=== PATIENT | male | born 1955 | race Caucasian/White ===

== ENCOUNTER → 2017-04-10 | Outpatient (CLI) | payer OTHER ==
[~2017-04-10] MED LIST: IBUP-103 PO; LSN/2025 PO; PRAV20TA PO
[2017-04-10 12:25] LABS: BASO % 0.2 %; BASO ABS # 0.01 K/uL (0-0.2); COMPLETE YES; EOS % 3.6 %; HEMATOCRIT 45.8 % (42-52); IG% 0.3 %; LYMPH % 34.3 %; MEAN CELL VOLUME 88.8 fL (80-100); MEAN CORPUSCULAR HEMOGLOBIN 30.4 pg (25-34); MEAN CORPUSCULAR HGB CONC 34.3 g/dl (32-36); MEAN PLATELET VOLUME 9.7 fL (7.4-10.4); MONO % 11.3 %; NEUT % 50.3 %; PLATELET COUNT 219 K/uL (130-400); RED BLOOD COUNT 5.16 M/uL (4.7-6.1); WHITE BLOOD COUNT 6.12 K/uL (4.8-10.8)
[2017-04-10 12:25] LABS: URINE APPEARANCE CLEAR (CLEAR); URINE BILIRUBIN NEG (NEG); URINE COLOR YELLOW; URINE EPITHELIAL CELL AUTO 0-5 /lpf (0-5); URINE NITRITE NEG (NEG); URINE PH 6.5 (4.5-7.5); UROBILINOGEN NEG (NEG); ZZUR CULT IF INDIC CLEAN CATCH NO
[2017-04-10 12:27] LABS: MANUAL MICROSCOPIC REQUIRED? NO; REVIEW REQ? NO
[2017-04-10 12:37] LABS: ALT/SGPT 32 U/L (12-78); AST/SGOT 22 U/L (15-37); BLOOD UREA NITROGEN 18 mg/dl (7-18); BUN/CREATININE RATIO 19.7 (10-20); CALCIUM 8.9 mg/dl (8.5-10.1); CARBON DIOXIDE 28 mmol/L (21-32); CHLORIDE 102 mmol/L (98-107); CHOLESTEROL 170 mg/dl (0-200); CREATININE 0.92 mg/dl (0.60-1.40); GLUCOSE 96 mg/dl (70-99); POTASSIUM 3.8 mmol/L (3.5-5.1); SODIUM 139 mmol/L (136-145); TRIGLYCERIDES 208 mg/dl (0-150); VERY LOW DENSITY LIPOPROT CALC 42 mg/dl
[2017-04-10 12:44] LABS: ALKALINE PHOSPHATASE 47 U/L (45-117); CHOLESTEROL/HDL RATIO 4.6; HDL CHOLESTEROL 37 mg/dl; LDL CHOLESTEROL CALCULATED 91 mg/dl; THYROID STIMULATING HORMONE 0.098 uIu/ml (0.300-4.500)
== END | disposition home or self-care (01) ==
LOC: C.LABBFT 08:09
PROVIDERS: ATTEND Physician Assistant Medical
DX: I10 Essential (primary) hypertension (principal); E78.5 Hyperlipidemia, unspecified

== ENCOUNTER → 2017-06-02 | Outpatient (CLI) | payer OTHER ==
[2017-06-02 12:25] LABS: BLOOD UREA NITROGEN 17 mg/dl (7-18); BUN/CREATININE RATIO 17.2 (10-20); CARBON DIOXIDE 27 mmol/L (21-32); CHLORIDE 100 mmol/L (98-107); CREATININE 1.01 mg/dl (0.60-1.40); GLUCOSE 102 mg/dl (70-99); POTASSIUM 3.9 mmol/L (3.5-5.1); SODIUM 136 mmol/L (136-145)
[2017-06-02 12:40] LABS: PROSTATE SPECIFIC ANTIGEN 0.776 ng/ml (0.000-4.000)
== END | disposition home or self-care (01) ==
LOC: C.LABBFT 07:57
PROVIDERS: ATTEND Internal Medicine
DX: Z12.5 Encounter for screening for malignant neoplasm of prostate (principal); R94.6 Abnormal results of thyroid function studies; I10 Essential (primary) hypertension

== ENCOUNTER 2019-08-02 05:10 | Inpatient (IN) ==
--- NOTE | 2019-07-03 09:25 | Anesthesiology Consultation ---
Date of Service July 03, 2019 Assessment & Plan (1) Encounter for pre-operative examination: - ASA instructions: okay to continue ASA perioperatively per surgeon. - Hx of difficult intubation (per patient): Patient states he was told by anesthesia "had difficulty" with intubation with right shoulder surgery ([facility]/Dr. Mathew/2011). Will attempt to obtain previous anesthesia records for further details. Chart Review Chart Review: Patient seen in Pre Admission Testing Teaching & Discussion Pre-Anesthesia Teaching/Discussion Notes: Instructed NPO after midnight before surgery,except medications with 15 cc of water. Medication instructions provided according to the PAT guidelines. History Surgery Operation Date: 08/02/19 10:30 Proposed Procedures p Left Anterior Total Hip Arthroplasty - Sylvester Montgomery, Height/Weight Height: 5 ft 10.5 in Weight: 125.1 kg Allergies Allergy/AdvReac Type Severity Reaction Status Date / Time Sulfa (Sulfonamide Allergy Severe RASH,FEVER Verified 06/26/19 09:15 Antibiotics) Medications Home Medications Medication Instructions Recorded Confirmed Last Taken aspirin 81 mg chewable tablet 81 mg PO QAM 05/07/19 06/26/19 Unknown lisinopril-hydrochlorothiazide 1 tab PO BID 06/26/19 06/26/19 Unknown naproxen sodium [Aleve] 220 mg PO BID PRN 06/26/19 06/26/19 Unknown naproxen-diphenhydramine [Aleve PM] 2 tab PO PM 06/26/19 06/26/19 Unknown pravastatin 20 mg PO QPM 06/26/19 06/26/19 Unknown Past Medical History Medical History (Updated 07/04/19 @ 08:35 by Rachael Bradford) Aortic stenosis "Mild" aortic stenosis per 05/2019 ECHO (JANELLE 1.5cm2, MG 13.9mmhg) Arthritis BPH (benign prostatic hyperplasia) Carotid stenosis History of difficult intubation Patient states he was told by anesthesia "had difficulty" with intubation with right shoulder surgery ([facility]/Dr. Mathew/2011) Hyperlipidemia Hypertension Impaired fasting glucose Lumbar radiculopathy + LBP Obesity (BMI 30-39.9) Obstructive sleep apnea CPAP Exercise / Class Metabolic Activity II 4-5 Yardwork/Stairs/Walk up hill Past Family History Family History Father Alzheimer disease Mother Dyslipidemia Past Surgical History Surgical History History of carpal tunnel release R/L History of colonoscopy + polypectomy S/P tonsillectomy Status post arthroscopy of right shoulder Status post hernia repair Left inguinal hernia repair, umbilical hernia repair Past Anesthesia History Difficult Airway (possible (see additional comments)) and No Family Hx of Anesthesia Complications *Per patient, told by anesthesia "had difficulty" with intubation with right jakub ulder surgery ([facility]/Dr. Mathew/2011). Will attempt to obtain previous anesthesia records for further details.* History of PONV No Hx of PONV and Hx of Motion Sickness ("on boats") Social History Smoking Status: Never smoker Do You Dip or Chew Tobacco: No Hx Alcohol Use: Yes Alcohol type: beer alcohol intake frequency: a few times a month Hx Substance Use: No Review of Systems Patient denies chest pain, shortness of breath, dyspnea on exertion, cough, wheezing, palpitations. Physical Exam Vital Signs VITALS BP 161/83 P 70 TEMP 98.5 SP02 94%RA RESP 16 PHYSICAL Full neck and c-spine range of motion. Full TMJ range of motion. TMD 4 finger breaths Mallampati Score 3 Dentition: missing molars, several caps/crowns Lungs: clear throughout to auscultation Cardiac: regular rate and rhythm, II/ systolic murmur Spine: normal Carotid arteries: negative bruit Extremities: no edema Trimmed green Thick neck Testing Laboratory Results 07/03/19 10:36 07/03/19 10:36 PT 10.6 Seconds (9.0-12.0) 07/03/19 10:36 INR 1.0 (0.9-1.1) 07/03/19 10:36 APTT 23.4 Seconds (21.0-31.0) 07/03/19 10:36 Blood Type A Positive 07/03/19 10:36 Antibody Screen NEGATIVE 07/03/19 10:36 Electrocardiogram Date: 07/03/19 NSR at 65bpm. LAD. NS TWA. Chest X-Ray Date: 07/03/19 Atherosclerosis of the aortic arch. Cardiac silhouette mildly enlarged. Lungs and pleural spaces clear. Degenerative changes of the thoracic spine. Slightly exaggerated thoracic kyphosis. Upper abdomen normal. Mild cardiomegaly. No other convincing evidence of acute cardiopulmonary disease. Echocardiogram Date: 06/04/19 EF 55-60%. Mild cLVH. No RWMA. Mild aortic stenosis (JANELLE 1.5cms, MG 13.9mmhg). Stress Test Date: 07/07/16 Type: exercise Stress EKG/ECHO negative for inducible ischemia. LVEF 65-70%. Moderately incr eased cLV wall thickness. Borderline dilated LAD. Grade I DD. Mild AV sclerosis. 85% MPHR. Other Testing Carotid duplex: 06/04/18: <50% B/L ICA stenosis. Antegrade flow both vertebral arteries.
--- NOTE | 2019-07-03 11:00 | XRay Report ---
XR chest Pre-admission PA/Lat CLINICAL HISTORY: 64 years-old Male presenting with preoperative evaluation. TECHNIQUE: PA and lateral views of the chest were obtained. COMPARISON: 11/14/2016. FINDINGS: Atherosclerosis of the aortic arch. Cardiac silhouette mildly enlarged. Lungs and pleural spaces kike r. Degenerative changes of the thoracic spine. Slightly exaggerated thoracic kyphosis. Upper abdomen normal. IMPRESSION: Mild cardiomegaly. No other convincing evidence of acute cardiopulmonary disease. ACT 112: Negative or not required by law. Electronically signed by: Mac Wong M.D. 07/03/2019 10:59 AM
[2019-07-03 11:18] LABS: Basophils # (auto) 0.02 K/uL (0-0.2); Basophils % (auto) 0.2 %; Eosinophils # (auto) 0.16 K/uL (0-0.5); Eosinophils % (auto) 1.8 %; Hematocrit (blood only) 46.9 % (42-52); Hemoglobin 16.1 g/dL (14.0-18.0); Immature Granulocytes # (auto) 0.06 K/uL (0.00-0.02); Immature Granulocytes % (auto) 0.7 %; Lymphocytes # (auto) 2.34 K/uL (1.2-3.4); Lymphocytes % (auto) 26.1 %; Mean Corpuscular Hemoglobin 30.9 pg (25-34); Mean Corpuscular Hgb Conc 34.3 g/dL (32-36); Mean Platelet Volume 9.3 fL (7.4-10.4); Monocytes # (auto) 0.96 K/uL (0.11-0.59); Monocytes % (auto) 10.7 %; Neutrophils # (auto) 5.42 K/uL (1.4-6.5); Neutrophils % (auto) 60.5 %; Platelet Count 208 K/uL (130-400); RDW Coefficient of Variation 13.6 % (11.5-14.5); RDW Standard Deviation 44.7 fL (36.4-46.3); Red Blood Count 5.21 M/uL (4.7-6.1); White Blood Count 8.96 K/uL (4.8-10.8)
[2019-07-03 11:29] LABS: Partial Thromboplastin Ratio 0.9; Partial Thromboplastin Time 23.4 Seconds (21.0-31.0); Prothrombin Time 10.6 Seconds (9.0-12.0)
[2019-07-03 14:38] LABS: BUN Creatinine Ratio 20.9 (10-20); Calcium 9.1 mg/dl (8.5-10.1); Creatinine Clr Calc Pharmacy 100.4 ml/min; Est GFR (African American) 90.9; Est GFR (Non-African American) 78.4; Potassium 3.7 mmol/L (3.5-5.1)
--- NOTE | 2019-08-01 06:32 | History & Physical Report ---
Date of Service August 01, 2019 Assessment & Plan (1) Osteoarthritis of left hip: We will proceed with a left anterior total hip arthroplasty. Postoperatively he will be started on aspirin for DVT prophylaxis and kept overnight in the hospital for postoperative medical management. He plans to use [facility] home health upon discharge. Present on Admission?: Yes History of Present Illness Chief Complaint: Primary osteoarthritis of the left hip Primary Care Provider: Ron Sanabria MD Tyler is a pleasant 64-year-old male who is been dealing with chronic increasing left hip and groin pain. X-rays and clinical examination have been diagnostic for primary osteoarthritis of the left hip. After failing conservative treatment, he has elected to proceed with a left total hip arthroplasty. Allergies Allergy/AdvReac Type Severity Reaction Status Date / Time Sulfa (Sulfonamide Allergy Severe RASH,FEVER Verified 07/25/19 14:14 Antibiotics) Home Medications Home Medications Medication Instructions Recorded Confirmed Type aspirin 81 mg chewable tablet 81 mg PO QAM 05/07/19 07/25/19 History naproxen sodium [Aleve] 220 mg PO BID PRN 06/26/19 07/25/19 History naproxen-diphenhydramine [Aleve PM] 2 tab PO PM 06/26/19 07/25/19 History codeine 10 mg-guaifenesin 100 mg/5 5 ml PO HS PRN #120 ml 07/08/19 07/25/19 Rx mL oral liquid lisinopril 20 1 tab PO BID #180 tab 07/22/19 07/25/19 Rx mg-hydrochlorothiazide 25 mg tablet pravastatin 20 mg tablet 20 mg PO QPM #90 tab 07/22/19 07/25/19 Rx cetirizine 10 mg tablet 10 mg PO DAILY #30 tab 07/25/19 07/25/19 Rx fluticasone propionate 50 2 sprays INTNAS DAILY #9.9 ml 07/25/19 07/25/19 Rx mcg/actuation nasal spray,suspension Past Med/Surg History Medical History Aortic stenosis "Mild" aortic stenosis per 05/2019 ECHO (JANELLE 1.5cm2, MG 13.9mmhg) Arthritis BPH (benign prostatic hyperplasia) Carotid stenosis Hyperlipidemia Hypertension Impaired fasting glucose Lumbar radiculopathy + LBP Obesity (BMI 30-39.9) Obstructive sleep apnea CPAP Surgical History History of carpal tunnel release R/L History of colonoscopy + polypectomy History of difficult intubation Patient states he was told by anesthesia "had difficulty" with intubation with right shoulder surgery ([facility]/Dr. 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 Feels Safe at Home: Yes Smoking Status: Never smoker Second Hand Exposure: No ; Hx Alcohol Use: Yes Alcohol type: beer Alcohol Intake Frequency: Weekly Alcohol Intake Frequency Comment: about one beer per week Hx Substance Use: No Review of Systems All systems reviewed & are unremarkable except as noted in HPI & below Physical Exam Constitutional: WD/WN, vitals as above Eyes: PERRL, conjunctivae normal, anicteric sclerae ENMT: external ear and nose normal, oropharynx normal Neck: trachea midline, no thyromegaly Respiratory: normal respiratory effort Cardiovascular: RRR, no murmur, no edema Gastrointestinal (Abdomen): normal bowel sounds, soft, nontender, no hepatosplenomegaly Musculoskeletal: Physical examination of the left hip reveals decreased range of motion with flexion, internal and external rotation. There is significant groin pain with forced internal rotation of the hip his leg lengths are essentially equal. Psychiatric: A+Ox3, euthymic affect Results & Data Diagnostic Findings Radiographs of the left hip and pelvis demonstrate advanced osteoarthritis with joint space narrowing osteophyte formation and [id number] articulation.
[2019-08-02] MEDS ORDERED: GABAPENTIN 600 MG DOSE PO SCH (06:00)
[2019-08-02] MEDS ORDERED: TRANEXAMIC ACID 1,000 MG **IV Pre-op IV SCH (06:00)
[2019-08-02] MEDS ORDERED: LR 60ML/HR IV SCH (06:00)
[2019-08-02] MEDS ORDERED: LR 500ML BOLUS, THEN 15ML/HR IV SCH (06:00)
[2019-08-02] MEDS ORDERED: CEFAZOLIN 3000MG 72.5 ML IV SCH (06:00)
[2019-08-02] MEDS ORDERED: dexAMETHasone 4 MG TAB PO SCH (06:00)
[2019-08-02] MEDS ORDERED: TRANEXAMIC ACID 1,000 MG **IV Intra-op IV SCH (06:00)
[2019-08-02] MEDS ORDERED: ACETAMINOPHEN 500 MG TAB PO SCH (06:00)
[2019-08-02] MEDS ORDERED: FAMOTIDINE 20 MG TAB PO SCH (06:00)
[2019-08-02] MEDS ORDERED: ROPIVACAINE 0.5% HCL/PF 150 MG, BUPIVACAINE 0.5% MPF 30 ML, EPINEPHrine 30MG/30ML (OR U... INSTIL SCH (06:00)
[2019-08-02] MEDS ORDERED: BUPIVACAINE 0.5 % 5 MG/1 ML PF 10ML VIAL ONE (06:22)
[2019-08-02] MEDS ORDERED: ORTHO JOINT ANESTHETIC ONE (06:33)
[2019-08-02] MEDS ORDERED: LIDOCAINE HCL 2% 2 ML VIAL/AMP(20MG/ML) INFIL ONE (06:33)
[2019-08-02] MEDS ORDERED: PROPOFOL IV EMULSION 10 MG/ML 20 ML VIAL IV ONE (06:33)
[2019-08-02] MEDS ORDERED: MIDAZOLAM HCL 1 MG/ML 2ML VIAL ONE ×2 (06:34→08:36)
--- NOTE | 2019-08-02 06:47 | History & Physical Bridge Note ---
Date of Service August 02, 2019 History & Physical Bridge Note I have examined the patient, reviewed the History & Physical and in the interval since the performance of the History & Physical I have noted the following changes of clinical significance: no changes noted
[2019-08-02] MEDS ORDERED: ATROPINE SULFATE 0.1 MG/ML 10ML SYR IV PRN (06:55)
[2019-08-02] MEDS ORDERED: ePHEDrine sulfate 50 MG/ML AMP IV PRN (06:55)
[2019-08-02] MEDS ORDERED: fentaNYL citrate 100 MCG/2 ML VIAL IV PRN (06:55)
[2019-08-02] MEDS ORDERED: ONDANSETRON INJ 2 MG/ML 2 ML VIAL IV PRN ×2 (06:55→10:09)
[2019-08-02] MEDS ORDERED: fentaNYL citrate 100 MCG/2 ML VIAL ONE (07:10)
[2019-08-02] MEDS ORDERED: ePHEDrine sulfate 50 MG/ML SYR ONE (08:46)
[2019-08-02] MEDS ORDERED: PHENYLEPHRINE 100MCG/ML 5ML SYR ONE (08:46)
--- NOTE | 2019-08-02 08:49 | Operative Report ---
PG Post Operative Report Pre & Post Diagnosis Operation Date: 08/02/19 07:00 Pre-Op Diagnosis: Left Hip Degenerative Joint Disease Post-Op Diagnosis: Left Hip Degenerative Joint Disease I identified the patient and participated in the time-out.: Yes Procedure Operation Date: 08/02/19 07:00 Actual Procedures p Left Anterior Total Hip Arthroplasty(Left) - Sylvester Montgomery DO Surgeon Sylvester Montgomery DO Communication Signals Intelligence Sylvester Somers PAC Estimated Blood Loss 200 Findings Consistent with Post-Op Diagnosis Specimens Left femoral head Complications none Disposition Disposition: Recovery Room Indications Tyler is a pleasant 64-year-old male who presents my office today with chronic increasing left hip and groin pain. X-rays and clinical examination are diagnostic for primary osteoarthritis of the left hip. After failing conservative treatment, he has elected to proceed with a left total hip arthroplasty. Description of Procedure Implants used Biomet Taperloc total hip arthroplasty system with a size 11 high offset Taperloc stem, a 52 mm G7 cup with a 25mm screw, an E1 polyethylene liner, a 36 mm ceramic head with a 0 neck. Patient arrived at the hospital for the above procedure. They were seen in the preoperative holding area and the operative extremity was identified and signed. They were given a spinal anesthetic. They were given a preoperative antibiotic and TXA. They were taken back To the operating room and laid on the table in the supine position. The leg was brought out through a Puristst leg positioner. The hip was then prepped and draped in sterile fashion. A timeout was done and the patient and the operative extremity was properly identified. An anterior approach was used. Dissection was taken down through the fascia and the tensor muscle belly was retracted laterally and the rectus was retracted medially. The circumflex vessels were identified and ligated. The capsule was then incised and tagged for later repair. The femoral neck was then cut and the femoral head was removed. The acetabulum was exposed. Time was spent doing a complete circumferential labral release. Sequential reaming of the acetabulum up to a size 51 reamer was done. Final reamings were done under fluoroscopy to ensure appropriate version. A Biomet 52 mm G7 cup was then impacted into place. A single 25 mm screw was placed. The E1 polyethylene liner was then snapped into place. Surrounding soft tissues were then injected with 100 cc of an orthopedic pain control cocktail. The proximal femur was then exposed. Sequential broaching up to a size 11 broach was done. Off that broach a size 36 head with a 0 neck was trialed. The hip was reduced and fluoroscopic images showed anatomic alignment of the implants in acceptable length. The broach was removed. The final size 11 high offset Taperloc stem was then impacted into place. A ceramic 36 mm head with a 0 neck was then impacted into place in the hip was reduced. Final fluoroscopic images showed anatomic reduction of the hip. The capsule was then closed with #1 Vicryl suture. A dilute betadyne lavage was then done for 3 minutes. The joint was then irrigated with normal saline solution. The fascia was closed with #1 PDS suture. Skin was closed with 2-0 Vicryl, mac, and a Jazzy VAC dressing. The patient was then transferred to a hospital bed and taken to the post anesthesia care unit in stable condition. They tolerated the procedure well. I attest to the content of the Intraoperative Record and any orders documented therein. Any exceptions are noted below.
--- NOTE | 2019-08-02 09:07 | Fluoroscopy Report ---
INTRAOPERATIVE RADIOGRAPHS CLINICAL HISTORY: Left hip arthroplasty. Fluoroscopy time: 33 seconds. FINDINGS: 2 spot fluoroscopic views of the left hip are presented. The first image shows surgical abs ence of the femoral head and neck with the acetabular cup in place. A single cortical lag screw trans fixes the cup. The second image shows the left hip arthroplasty in near anatomic alignment. There is no evidence of acute fracture on these fluoroscopic views. IMPRESSION: Intraoperative images from a left hip arthroplasty procedure as above. Electronically signed by: Damir Ram M.D. 08/02/2019 9:05 AM
--- NOTE | 2019-08-02 09:26 | Anesthesiology Progress Note ---
Date of Service August 02, 2019 Anesthesia Post Procedure Vital Signs Vital Signs: Temp Pulse Resp BP Pulse Ox 08/02/19 05:46 37.3 C 80 18 150/79 H 96 Transfer of Care Handoff Completed per policy Notes Mental Status: alert / awake / arousable Patient Amnestic to Procedure: Yes (non distressing recall as discussed preop) Nausea / Vomiting: adequately controlled Pain: adequately controlled Airway Patency, RR, SpO2: stable & adequate BP & HR: stable & adequate Hydration State: stable & adequate Neuraxial Anesthesia: was administered and sensory block is resolving Anesthetic Complications: no major complications apparent and Pt Satisfied with anesthetic care
--- NOTE | 2019-08-02 09:56 | XRay Report ---
XR hip 1V LT w pelvis CLINICAL HISTORY: IN PACU - A/P PELVIS and LATERAL HIP COMPARISON: None. DISCUSSION: Anatomic alignment posttotal left hip arthroplasty. Could contact between prosthetic and underlying bone. No evidence for acetabular protrusion. Expected postoperative soft tissue change lef t hip. IMPRESSION: Anatomic alignment posttotal left hip arthroplasty. ACT 112: Negative or not required by law. The above report was generated using voice recognition software. It may contain grammatical, syntax or spelling errors. Electronically signed by: Joao Aguilar M.D. 08/02/2019 9:55 AM
[2019-08-02] MEDS ORDERED: CETIRIZINE HCL 10 MG TABLET PO PRN (10:09)
[2019-08-02] MEDS ORDERED: MAGNESIUM HYDROXIDE SUSP 30 ML UDC PO PRN (10:09)
[2019-08-02] MEDS ORDERED: HYDROmorphone INJ 0.5 MG/0.5 ML SYR IV PRN (10:09)
[2019-08-02] MEDS ORDERED: bisacodyL 10 MG SUPP PR PRN (10:09)
[2019-08-02] MEDS ORDERED: NALOXONE HCL 0.4 MG/1 ML VIAL/CARP IV PRN (10:09)
[2019-08-02] MEDS ORDERED: FLUTICASONE PROPIONATE NA SPR 16 GM BTL PRN (10:09)
[2019-08-02] MEDS ORDERED: METOCLOPRAMIDE HCL INJ 5 MG/ML 2 ML VIAL IV PRN (10:09)
[2019-08-02] MEDS: SODIUM CHLORIDE 0.9% 1000ML 1,000 ML IV SCH ×2 (10:33→20:27)
[2019-08-02] MEDS: KETOROLAC 30 MG/ML VIAL IV SCH ×2 (11:09→18:54)
[2019-08-02] MEDS: OXYCODONE HCL IR 5 MG TAB (IMMEDIATE RELEASE) PO PRN ×3 (11:46→21:31)
[2019-08-02] MEDS: ACETAMINOPHEN 500 MG TAB PO SCH ×2 (13:16→21:08)
[2019-08-02] MEDS: CEFAZOLIN 2000MG 2,000 MG/15 ML SYR IV SCH (16:21)
[2019-08-02] MEDS: PRAVASTATIN SOD 20 MG TAB PO SCH (21:05)
[2019-08-02] MEDS: LISINOPRIL/HCTZ 20/25MG 1 TAB PO SCH (21:06)
[2019-08-02] MEDS: DOCUSATE SODIUM 100 MG CAP PO SCH (21:06)
[2019-08-02] MEDS: SENNA 8.6 MG TAB PO SCH (21:06)
[2019-08-02] MEDS: ASPIRIN 81 MG ECTAB PO SCH (21:12)
[2019-08-03] MEDS: CEFAZOLIN 2000MG 2,000 MG/15 ML SYR IV SCH (00:14)
[2019-08-03] MEDS: KETOROLAC 30 MG/ML VIAL IV SCH ×4 (00:14→18:29)
[2019-08-03] MEDS: ACETAMINOPHEN 500 MG TAB PO SCH ×3 (05:54→22:26)
[2019-08-03 06:43] LABS: Eosinophils # (auto) 0.01 K/uL (0-0.5); Eosinophils % (auto) 0.1 %; Hematocrit (blood only) 36.3 % (42-52); Hemoglobin 12.3 g/dL (14.0-18.0); Immature Granulocytes # (auto) 0.05 K/uL (0.00-0.02); Immature Granulocytes % (auto) 0.5 %; Lymphocytes # (auto) 1.34 K/uL (1.2-3.4); Lymphocytes % (auto) 12.2 %; Mean Corpuscular Hemoglobin 30.1 pg (25-34); Mean Corpuscular Hgb Conc 33.9 g/dL (32-36); Mean Platelet Volume 9.1 fL (7.4-10.4); Monocytes # (auto) 1.31 K/uL (0.11-0.59); Neutrophils # (auto) 8.25 K/uL (1.4-6.5); Neutrophils % (auto) 75.2 %; Platelet Count 194 K/uL (130-400); RDW Coefficient of Variation 13.3 % (11.5-14.5); RDW Standard Deviation 43.1 fL (36.4-46.3); Red Blood Count 4.08 M/uL (4.7-6.1); White Blood Count 10.96 K/uL (4.8-10.8)
[2019-08-03 07:18] LABS: BUN Creatinine Ratio 21.5 (10-20); Calcium 8.4 mg/dl (8.5-10.1); Creatinine Clr Calc Pharmacy 91.7 ml/min; Est GFR (African American) 81.2; Potassium 3.9 mmol/L (3.5-5.1)
[2019-08-03] MEDS ORDERED: dexAMETHasone 4 MG TAB PO SCH (08:00)
[2019-08-03] MEDS: LISINOPRIL/HCTZ 20/25MG 1 TAB PO SCH ×2 (08:47→20:14)
[2019-08-03] MEDS: MULTIVITAMIN TAB PO SCH (08:47)
[2019-08-03] MEDS: DOCUSATE SODIUM 100 MG CAP PO SCH ×2 (08:47→20:14)
[2019-08-03] MEDS: ASPIRIN 81 MG ECTAB PO SCH ×2 (08:47→20:15)
--- NOTE | 2019-08-03 09:15 | Orthopedic Progress Note ---
Date of Service August 03, 2019 Assessment & Plan (1) History of left hip replacement: Overall he is doing very well. His pain is now controlled. He is on aspirin for DVT prophylaxis. He is will be seen by physical therapy today for ambulation and range of motion exercises. We will likely discharge him to home tomorrow. Present on Admission?: Yes Santana Scott was seen and examined at bedside this morning. Overall he is doing very well. He was having a little bit of pain last night but that was controlled with the oxycodone. He already ambulated around the nurses station. He is happy with his progress. He has no complaints. Physical Exam Musculoskeletal: On physical examination of his left hip, the Jazzy VAC dressing is to suction. His leg lengths are equal. He has active dorsiflexion and plantarflexion of his left ankle. Results & Data Vital Signs (Past 12 Hours) Vital Signs Temp Pulse Pulse Resp BP Pulse Ox 08/03/19 07:30 36.7 C 76 18 113/73 95 08/03/19 03:19 36.6 C 79 16 125/73 95 08/02/19 23:05 36.8 C 87 16 158/82 H 94 Laboratory Results H & H 07/03/19 08/03/19 Range/Units 10:36 05:53 Hgb 16.1 12.3 L (14.0-18.0) g/dL Hct 46.9 36.3 L (42-52) % Coagulation 07/03/19 Range/Units 10:36 INR 1.0 (0.9-1.1) Diagnostic Findings Postoperative x-rays of the left hip show the prosthesis to be in anatomic alignment without any evidence of fracture, dislocation, or loosening. PG Care Time/CCT Total # of Minutes Spent Total Time Spent with Patient: Total time spent is greater than 50% in coordination of care (as documented) at patient's floor/unit and/or counseling patient: Coding Level of Care Code None Diagnoses History of left hip replacement Z96.642
[2019-08-03] MEDS: OXYCODONE HCL IR 5 MG TAB (IMMEDIATE RELEASE) PO PRN ×2 (10:59→15:09)
[2019-08-03] MEDS: PRAVASTATIN SOD 20 MG TAB PO SCH (20:14)
[2019-08-03] MEDS: SENNA 8.6 MG TAB PO SCH (20:15)
[2019-08-04] MEDS: KETOROLAC 30 MG/ML VIAL IV SCH ×2 (00:38→06:11)
[2019-08-04] MEDS: ACETAMINOPHEN 500 MG TAB PO SCH (06:11)
--- NOTE | 2019-08-04 07:42 | Orthopedic Progress Note ---
Date of Service August 04, 2019 Assessment & Plan (1) History of left hip replacement: Overall he is doing very well. Is not having too much pain in the left hip. He is ambulating well with physical therapy. He will be seen by physical therapy again this morning for ambulation and range of motion exercises. He is on aspirin for DVT prophylaxis. He can be discharged home later today. He will follow-up with orthopedics in 2 weeks. Present on Admission?: Yes Santana Scott was seen and examined at bedside this morning. Overall he is doing very well. He is not having too much pain in the left hip. He was able to ambulate well with physical therapy. He has no complaints. Physical Exam Musculoskeletal: On physical examination of his left hip, the Jazzy VAC dressing is in place. His leg lengths are equal. He has a little bit of numbness around the quad. Results & Data Vital Signs (Past 12 Hours) Vital Signs Temp Pulse Resp BP Pulse Ox 08/04/19 06:30 36.9 C 70 16 164/76 H 94 08/03/19 23:10 36.4 C L 78 16 143/71 H 95 PG Care Time/CCT Total # of Minutes Spent Total Time Spent with Patient: Total time spent is greater than 50% in coordination of care (as documented) at patient's floor/unit and/or counseling patient: Coding Level of Care Code None Diagnoses History of left hip replacement Z96.642
--- NOTE | 2019-08-04 07:44 | Discharge Summary ---
Date of Service August 04, 2019 Admission HPI Per Admitting Provider Tyler is a pleasant 64-year-old male who is been dealing with chronic increasing left hip and groin pain. X-rays and clinical examination have been diagnostic for primary osteoarthritis of the left hip. After failing conservative treatment, he has elected to proceed with a left total hip arthroplasty. Principal Diagnosis Left total hip arthroplasty Discharge Data Allergies Allergy/AdvReac Type Severity Reaction Status Date / Time Sulfa (Sulfonamide Allergy Severe RASH,FEVER Verified 08/02/19 05:40 Antibiotics) Consultations 08/03/19 08:00 Consult Case Management - Discharge Planning Routine Procedures Performed Operation Date: 08/02/19 07:00 Actual Procedures p Left Anterior Total Hip Arthroplasty(Left) - Sylvester Montgomery DO Ordered Studies 08/02/19 07:00 FL fluoroscopy <1hr Routine FL hip LT 1V Routine Hospital Course (1) History of left hip replacement: On August 02, 2019 Tyler arrived at [facility] and underwent a left total hip arthroplasty without complication. He had a spinal anesthetic. Postoperatively he was started on aspirin for DVT prophylaxis and discharged to general orthopedic floors. His hospital course was uneventful. On postop day #1 his H&H was stable and his pain was well controlled. He was able to participate well with physical therapy doing ambulation and range of motion exercises. On postop day #2 he continued to do well. He was seen once again by physical therapy. He was then discharged home. He will follow-up with orthopedics in 2 weeks. Total Time Total Time Spent Total Time Spent (In Minutes): 20 Discharge Plan Discharge Items Patient Disposition: Home - Home Health Services Reason For Visit: Left Hip Degenerative Joint Disease Discharge Diagnosis: Left total hip arthroplasty Activity: As commented below Non-emergency contact: Surgeon Call non-emergency contact if: your wound has increased redness and your wound has increased drainage Follow-up/Referrals: Juan Sanabria MD [Primary Care Provider] - Diet: Regular Addtl Attending Provider Instructions: Activity and Therapy Recommendations: * If you are using [facility] then therapy will be provided at your home until they feel you have accomplished all of your goals. * If you are using [facility] then Physical Therapy will be provided until they feel you are ready to start Outpatient Physical Therapy. * If you are not using home therapy then Outpatient Physical Therapy should start about 3-5 days from your day of surgery. Therapy will last about 6-10 weeks * You were shown a series of exercises in the hospital. Do these exercises three times each day including the exercises you were shown in physical therapy. * Get up and walk several times each day.~ For the first four weeks, try not to stand or walk for more than one hour at a time. If you do stand or walk for more than one hour, you will not hurt anything, but your leg will likely swell.~~ * As you feel comfortable, you may change from the walker or crutches to a cane and~then to independent walking. Medications: * Narcotic You will likely be sent home from the hospital with a prescription for the narcotic pain medication that worked best throughout your stay. * Aspirin Most patients will be required to take Aspirin 81mg twice a day for 6 weeks after surgery. This is obtained [id number] and a prescription is not necessary. * Other medications may be prescribed for specific circumstances. If you have any questions, please call the office at . * Resume previous home medications unless otherwise instructed TEDs/Elastic Stockings: The white elastic stockings help limit swelling and prevent blood clots from forming in your legs. The more you wear them, the more they work. Wear them for six weeks. Dressing Care: You will likely have a purple VAC dressing after surgery. This dressing will keep the incision dry and promote early healing. After about 7 days the batteries will wear out and the VAC will lose suction. Simply remove the dressing at that time and throw everything away, including the small suction machine. Then, you may leave the mac open to air or cover them with a dry dressing so they do not rub on your pants. The mac will be removed at your 2 week follow-up appointment. Showering: You may shower immediately with the purple VAC dressing. Let the shower spray hit your opposite side and slowly pat the plastic dry. Do not soak the dressing. After the dressing is removed you may shower normally with the mac exposed. Let soapy water run over the mac and pat them dry. Things To Watch For: * Drainage from the incision site that occurs more than one week after your surgery. * Increased redness at the incision site. * Fever above 102 degrees Fahrenheit. * Unusual chest pain or shortness of breath. * Call [facility] at with any of the above problems Follow-Up Visit: Follow-up with Dr. Montgomery 2-3 weeks after your day of surgery. An appointment was probably scheduled when you signed-up for surgery in the office. If you have any questions call Office Instructions: More detailed instructions as well as Frequently Asked Questions were provided in a folder by our office when you signed-up for surgery. Please review these instructions when you get home. If you have any further questions or concerns, please feel free to call the office at [phone] Pending Studies at Discharge: No Stand-Alone Forms: [facility] OD[facility], Smoking Cessation Medications and DC Order Prescriptions: New oxycodone 5 mg Tablet 5 mg PO Q4H PRN (Reason: pain) Qty: 40 RF: 0 Continued lisinopril-hydrochlorothiazide 20-25 mg tablet 1 tab PO BID Qty: 180 RF: 1 pravastatin 20 mg tablet 20 mg PO QPM Qty: 90 RF: 1 codeine-guaifenesin 10-100 mg/5 mL liquid 5 ml PO HS PRN (Reason: cough) Qty: 120 RF: 0 naproxen sodium [Aleve] 220 mg Capsule 220 mg PO BID PRN (Reason: Pain) RF: 0 Aleve PM 220-25 mg Tablet 2 tab PO PM RF: 0 cetirizine [Zyrtec] 10 mg tablet 10 mg PO DAILY PRN (Reason: Allergic Symptoms) RF: 0 fluticasone propionate [Flonase Allergy Relief] 50 mcg/actuation spray,suspension 2 sprays INTNAS DAILY PRN (Reason: Allergic Symptoms) RF: 0 Changed aspirin [Placido Chewable Aspirin] 81 mg tablet,chewable 81 mg PO BID 42 Days Qty: 0 RF: 0 Discharge Orders: Discharge Order (Routine); Ordered 08/04/19 Ordered By: Sylvester Montgomery Admission Data Admit Date/Time: 08/02/19 09:21 Attending Provider: Sylvester Montgomery Admit Provider: Sylvester Montgomery Primary Care Provider: Juan Sanabria Other Providers: [facility] Coding Level of Care Code D/C Day Management <30 mins Diagnoses History of left hip replacement Z96.647
[2019-08-04] MEDS: LISINOPRIL/HCTZ 20/25MG 1 TAB PO SCH (08:46)
[2019-08-04] MEDS: DOCUSATE SODIUM 100 MG CAP PO SCH (08:46)
[2019-08-04] MEDS: MULTIVITAMIN TAB PO SCH (08:46)
[2019-08-04] MEDS: ASPIRIN 81 MG ECTAB PO SCH (08:46)
== END 2019-08-04 13:12 | disposition home health service (06) | DRG 470 ==
LOC: ASU 05:10 → 3E 09:21

== ENCOUNTER 2019-09-20 05:10 | Inpatient (IN) ==
--- NOTE | 2019-07-02 14:16 | PAT Medication Instructions ---
Medication Instructions Date of Service July 02, 2019 Home Medications aspirin 81 mg chewable tablet 81 mg PO QAM lisinopril-hydrochlorothiazide 1 tab PO BID naproxen sodium [Aleve] 220 mg PO BID PRN naproxen-diphenhydramine [Aleve PM] 2 tab PO PM pravastatin 20 mg PO QPM ASK your surgeon for instructions naproxen sodium [Aleve] 220 mg PO BID PRN naproxen-diphenhydramine [Aleve PM] 2 tab PO PM DO NOT take the morning of surgery lisinopril-hydrochlorothiazide 1 tab PO BID Take morning of surgery With a small sip of water, OTHERWISE NOTHING TO EAT OR DRINK AFTER MIDNIGHT: aspirin 81 mg chewable tablet 81 mg PO QAM Take evening before surgery lisinopril-hydrochlorothiazide 1 tab PO BID pravastatin 20 mg PO QPM Other Notes If you have any questions please call us at [phone] or [phone] or [phone] or [phone]
--- NOTE | 2019-08-19 13:08 | PAT Medication Instructions ---
Medication Instructions Date of Service August 19, 2019 Home Medications Medication Instructions Recorded lisinopril 20 1 tab PO BID #180 tab 07/22/19 mg-hydrochlorothiazide 25 mg tablet pravastatin 20 mg tablet 20 mg PO QPM #90 tab 07/22/19 aspirin [Placido Chewable Aspirin] 81 mg PO BID 42 Days #0 tab 08/04/19 oxycodone 5 mg PO Q4H PRN #40 tab 08/04/19 lisinopril 20 mg-hydrochlorothiazide 25 mg tablet 1 tab PO BID pravastatin 20 mg tablet 20 mg PO QPM aspirin [Placido Chewable Aspirin] 81 mg PO BID oxycodone 5 mg PO Q4H PRN acetaminophen 1,000 mg PO TID PRN ibuprofen-diphenhydramine cit [Advil PM] 1 cap PO HS ASK your surgeon for instructions ibuprofen-diphenhydramine cit [Advil PM] 1 cap PO HS ASK your prescriber and surgeon aspirin [Plcaido Chewable Aspirin] 81 mg PO BID DO NOT take the morning of surgery lisinopril 20 mg-hydrochlorothiazide 25 mg tablet 1 tab PO BID Take morning of surgery With a small sip of water, OTHERWISE NOTHING TO EAT OR DRINK AFTER MIDNIGHT: oxycodone 5 mg PO Q4H PRN (okay to take up to 4 hours prior to surgery if needed) acetaminophen 1,000 mg PO TID PRN (okay to take up to 4 hours prior to surgery if needed) Take evening before surgery lisinopril 20 mg-hydrochlorothiazide 25 mg tablet 1 tab PO BID pravastatin 20 mg tablet 20 mg PO QPM acetaminophen 1,000 mg PO TID PRN (if needed) Other Notes If you have any questions please call us at [phone] or [phone] or [phone] or [phone]
--- NOTE | 2019-08-20 10:25 | Anesthesiology Consultation ---
Date of Service August 20, 2019 Assessment & Plan (1) Encounter for pre-operative examination: - ?Hx difficult intubation: Patient states he was told by anesthesia "had difficulty" with intubation with remote right shoulder surgery ([facility]/Dr. Mathew). Received anesthesia records from 09/10/12 right shoulder arthroscopy that did not indicate any difficulties with LMA placement. Right interscalene block + #5LMA. - S/P Left anterior VANIA: 08/02/19: SAB x1 at L3/L4 at [facility] - ASA instructions: okay to continue ASA perioperatively per surgeon. Chart Review Chart Review: Acceptable Risk for Surgery and Patient seen in Pre Admission Testing Teaching & Discussion Pre-Anesthesia Teaching/Discussion Notes: Instructed NPO after midnight before surgery,except medications with 15 cc of water. Medication instructions provided according to the PAT guidelines. History Surgery Operation Date: 09/20/19 10:40 Proposed Procedures p Right Anterior Total Hip Arthroplasty - Sylvester Montgomery, Height/Weight Height: 5 ft 10.5 in Weight: 121.1 kg Allergies Allergy/AdvReac Type Severity Reaction Status Date / Time Sulfa (Sulfonamide Allergy Severe RASH,FEVER Verified 08/20/19 09:15 Antibiotics) Medications Home Medications Medication Instructions Recorded Confirmed Last Taken lisinopril 20 1 tab PO BID #180 tab 07/22/19 08/20/19 08/01/19 22:00 mg-hydrochlorothiazide 25 mg tablet pravastatin 20 mg tablet 20 mg PO QPM #90 tab 07/22/19 08/20/19 08/01/19 22:00 aspirin [Placido Chewable Aspirin] 81 mg PO BID 42 Days #0 tab 08/04/19 08/20/19 08/02/19 04:00 oxycodone 5 mg PO Q4H PRN #40 tab 08/04/19 08/20/19 Unknown acetaminophen 1,000 mg PO TID PRN 08/13/19 08/20/19 Unknown ibuprofen-diphenhydramine cit 1 cap PO HS 08/13/19 08/20/19 Unknown [Advil PM] Past Medical History Medical History Aortic stenosis "Mild" aortic stenosis per 05/2019 ECHO (JANELLE 1.5cm2, MG 13.9mmhg) Arthritis BPH (benign prostatic hyperplasia) Carotid stenosis Hyperlipidemia Hypertension Impaired fasting glucose Lumbar radiculopathy + LBP Obesity Obstructive sleep apnea CPAP Exercise / Class Metabolic Activity III < 4 Walking/Shop/Light housework Past Family History Family History Father Alzheimer disease Mother Dyslipidemia Past Surgical History Surgical History History of carpal tunnel release R/L History of colonoscopy + polypectomy History of difficult intubation Patient states he was told by anesthesia "had difficulty" with intubation with right shoulder surgery ([facility]/Dr. Mathew). Received anesthesia records from 09/10/12 right shoulder arthroscopy that did not indicate any difficulties with LMA placement. Right interscalene block + #5LMA. History of left hip replacement Left anterior VANIA: 08/02/19: SAB x1 at L3/L4 at [facility] S/P tonsillectomy Status post arthroscopy of right shoulder Status post hernia repair Left inguinal hernia repair, umbilical hernia repair Past Anesthesia History Difficult Airway (Patient states he was told by anesthesia "had difficulty" with intubation with right shoulder surgery ([facility]/Dr. Mathew). Received anesthesia records from 09/10/12 right shoulder arthroscopy that did not indicate any difficulties with LMA placement. Right interscalene block + #5LMA.), No Family Hx of Anesthesia Complications and Other (Awareness with previous hernia repair/VANIA) History of PONV No Hx of PONV and Hx of Motion Sickness ("on boats") Social History Smoking Status: Never smoker Do You Dip or Chew Tobacco: No Hx Alcohol Use: Yes Alcohol type: beer alcohol intake frequency: a few times a week Hx Substance Use: No substance use type: does not use Review of Systems Patient denies chest pain, shortness of breath, cough, wheezing, palpitations. Physical Exam Vital Signs VITALS BP 121/75 P 73 TEMP 99.6 SP02 94%RA RESP 16 PHYSICAL Full neck and c-spine range of motion. Full TMJ range of motion. TMD 3.5 finger breaths Mallampati Score 3 Dentition: missing molars, several caps/crowns Lungs: clear throughout to auscultation Cardiac: regular rate and rhythm, II/ systolic murmur Spine: normal Carotid arteries: faint bruit vs radiation on right Extremities: no edema Trimmed green Thick neck Testing Laboratory Results 08/20/19 10:50 PT 11.4 Seconds (9.0-12.0) 08/20/19 10:50 INR 1.1 (0.9-1.1) 08/20/19 10:50 APTT 24.4 Seconds (21.0-31.0) 08/20/19 10:50 Blood Type A Positive 08/20/19 10:50 Antibody Screen NEGATIVE 08/20/19 10:50 08/03/19 SODIUM 135 POTASSIUM 3.9 CHLORIDE 100 CO2 28 BUN 24 CREATININE 1.12 GLUCOSE 116 Electrocardiogram Date: 07/03/19 NSR at 65bpm. LAD. NS TWA. Chest X-Ray Date: 07/15/19 Mild stable cardiomegaly. No acute process. Echocardiogram Date: 06/04/19 EF 55-60%. Mild cLVH. No RWMA. Mild aortic stenosis (JANELLE 1.5cms, MG 13.9mmhg). Other Testing Carotid duplex: 06/04/18: <50% B/L ICA stenosis. Antegrade flow both vertebral arteries.
[2019-08-20 11:23] LABS: Basophils # (auto) 0.01 K/uL (0-0.2); Basophils % (auto) 0.2 %; Eosinophils # (auto) 0.07 K/uL (0-0.5); Eosinophils % (auto) 1.1 %; Hemoglobin 13.6 g/dL (14.0-18.0); Immature Granulocytes # (auto) 0.01 K/uL (0.00-0.02); Immature Granulocytes % (auto) 0.2 %; Lymphocytes # (auto) 1.35 K/uL (1.2-3.4); Lymphocytes % (auto) 21.3 %; Mean Corpuscular Volume 88.3 fL (80-100); Mean Platelet Volume 9.1 fL (7.4-10.4); Monocytes # (auto) 0.57 K/uL (0.11-0.59); Neutrophils # (auto) 4.32 K/uL (1.4-6.5); Neutrophils % (auto) 68.2 %; Platelet Count 249 K/uL (130-400); RDW Coefficient of Variation 13.1 % (11.5-14.5); RDW Standard Deviation 42.2 fL (36.4-46.3); Red Blood Count 4.53 M/uL (4.7-6.1); White Blood Count 6.33 K/uL (4.8-10.8)
[2019-08-20 11:35] LABS: INR 1.1 (0.9-1.1); Partial Thromboplastin Ratio 0.9; Partial Thromboplastin Time 24.4 Seconds (21.0-31.0); Prothrombin Time 11.4 Seconds (9.0-12.0)
[2019-09-20] MEDS ORDERED: LR 500ML BOLUS, THEN 15ML/HR IV SCH (06:00)
[2019-09-20] MEDS ORDERED: FAMOTIDINE 20 MG TAB PO SCH (06:00)
[2019-09-20] MEDS ORDERED: ACETAMINOPHEN 500 MG TAB PO SCH (06:00)
[2019-09-20] MEDS ORDERED: GABAPENTIN 600 MG DOSE PO SCH (06:00)
[2019-09-20] MEDS ORDERED: CEFAZOLIN 3000MG 72.5 ML IV SCH (06:00)
[2019-09-20] MEDS ORDERED: LR 60ML/HR IV SCH (06:00)
[2019-09-20] MEDS ORDERED: TRANEXAMIC ACID 1,000 MG **IV Pre-op IV SCH (06:00)
[2019-09-20] MEDS ORDERED: dexAMETHasone 4 MG TAB PO SCH (06:00)
[2019-09-20] MEDS ORDERED: ROPIVACAINE 0.5% HCL/PF 150 MG, BUPIVACAINE 0.5% MPF 30 ML, EPINEPHrine 30MG/30ML (OR U... INSTIL SCH (06:00)
[2019-09-20] MEDS ORDERED: TRANEXAMIC ACID 1,000 MG **IV Intra-op IV SCH (06:00)
[2019-09-20] MEDS ORDERED: fentaNYL citrate 100 MCG/2 ML VIAL ONE (06:20)
[2019-09-20] MEDS ORDERED: MIDAZOLAM HCL 1 MG/ML 2ML VIAL ONE (06:20)
[2019-09-20] MEDS ORDERED: BUPIVACAINE 0.5 % 5 MG/1 ML PF 10ML VIAL ONE (06:25)
[2019-09-20] MEDS ORDERED: ORTHO JOINT ANESTHETIC ONE (06:36)
--- NOTE | 2019-09-20 06:44 | History & Physical Report ---
Date of Service September 20, 2019 Assessment & Plan (1) Osteoarthritis of right hip: We will proceed with a right anterior total hip arthroplasty. Postoperatively he will be placed on aspirin for DVT prophylaxis and kept overnight in the hospital for postoperative medical management. [facility] plans [facility] upon discharge. Present on Admission?: Yes History of Present Illness Chief Complaint: Primary osteoarthritis of the right hip Primary Care Provider: Ron Sanabria MD Tyler is a pleasant 64-year-old male who is been having a chronic history of bilateral hip pain. X-rays and clinical examination were diagnostic for primary osteoarthritis of both hips. He underwent a left anterior total hip arthroplasty 6 weeks ago and did very well with that. He is now ready to proceed with a right anterior total hip arthroplasty. He has lost about 20 pounds since the last procedure. Allergies Allergy/AdvReac Type Severity Reaction Status Date / Time Sulfa (Sulfonamide Allergy Severe RASH,FEVER Verified 09/20/19 05:47 Antibiotics) Home Medications Home Medications Medication Instructions Recorded Confirmed Type lisinopril 20 1 tab PO BID #180 tab 07/22/19 09/20/19 Rx mg-hydrochlorothiazide 25 mg tablet pravastatin 20 mg tablet 20 mg PO QPM #90 tab 07/22/19 09/20/19 Rx aspirin [Placido Chewable Aspirin] 81 mg PO BID 42 Days #0 tab 08/04/19 09/20/19 Rx oxycodone 5 mg PO Q4H PRN #40 tab 08/04/19 09/20/19 Rx acetaminophen 1,000 mg PO TID PRN 08/13/19 09/20/19 History ibuprofen-diphenhydramine cit 1 cap PO HS 08/13/19 09/20/19 History [Advil PM] Past Med/Surg History Medical History Aortic stenosis "Mild" aortic stenosis per 05/2019 ECHO (JANELLE 1.5cm2, MG 13.9mmhg) Arthritis BPH (benign prostatic hyperplasia) Carotid stenosis Hyperlipidemia Hypertension Impaired fasting glucose Lumbar radiculopathy + LBP Obesity Obstructive sleep apnea CPAP Surgical History History of carpal tunnel release R/L History of colonoscopy + polypectomy History of difficult intubation Patient states he was told by anesthesia "had difficulty" with intubation with right shoulder surgery ([facility]/Dr. Mathew). Received anesthesia records from 09/10/12 right shoulder arthroscopy that did not indicate any difficulties with LMA placement. Right interscalene block + #5LMA. 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 Feels Safe at Home: Yes Safety Concerns: Feels Safe At This Time Smoking Status: Never smoker Do You Dip or Chew Tobacco: No ; Second Hand Exposure: No ; Hx Alcohol Use: Yes Alcohol type: beer Alcohol Intake Frequency: Weekly Alcohol Intake Frequency Comment: about one beer per week Hx Substance Use: No Review of Systems All systems reviewed & are unremarkable except as noted in HPI & below Physical Exam Constitutional: WD/WN, vitals as above Eyes: PERRL, conjunctivae normal, anicteric sclerae ENMT: external ear and nose normal, oropharynx normal Neck: trachea midline, no thyromegaly Respiratory: normal respiratory effort Cardiovascular: RRR, no murmur, no edema Gastrointestinal (Abdomen): normal bowel sounds, soft, nontender, no hepatospl enomegaly Musculoskeletal: Physical examination of the right hip reveals decreased range of motion with flexion, internal and external rotation. There is significant groin pain with forced internal rotation of the hip his leg lengths are essentially equal. Psychiatric: A+Ox3, euthymic affect Results & Data Vital Signs (Past 12 Hours) Vital Signs Temp Pulse Resp BP Pulse Ox 09/20/19 05:50 37.2 C 75 20 122/80 95 Diagnostic Findings Radiographs of the right hip and pelvis demonstrate advanced osteoarthritis with joint space narrowing osteophyte formation and [id number] articulation.
[2019-09-20] MEDS ORDERED: PROPOFOL IV EMULSION 10 MG/ML 20 ML VIAL IV ONE (07:15)
[2019-09-20] MEDS ORDERED: KETAMINE HCL INJ 50 MG/ML 10 ML VIAL ONE (07:18)
[2019-09-20] MEDS ORDERED: ONDANSETRON INJ 2 MG/ML 2 ML VIAL ONE (07:19)
[2019-09-20] MEDS ORDERED: GLYCOPYRROLATE 0.2 MG/ML VIAL ONE (07:19)
--- NOTE | 2019-09-20 08:41 | Fluoroscopy Report ---
FL hip RT 1V CLINICAL HISTORY: RIGHT ANTERIOR VANIA COMPARISON STUDY: None. FLUOROSCOPY TIME: 28 seconds. FINDINGS: Single fluoroscopic spot images of the right hip demonstrate a right total arthroplasty. Th e hardware is intact. No fracture or dislocation. IMPRESSION: Fluoroscopy provided for right total arthroplasty. ACT 112: Negative or not required by law. Results electronically sent 09/20/2019 8:40 AM to: Sylvester Montgomery DO Electronically signed by: Claudio Diane M.D. 09/20/2019 8:40 AM
--- NOTE | 2019-09-20 08:46 | Operative Report ---
PG Post Operative Report Pre & Post Diagnosis Operation Date: 09/20/19 07:00 Pre-Op Diagnosis: Right Hip Degenerative Joint Disease Post-Op Diagnosis: Right Hip Degenerative Joint Disease I identified the patient and participated in the time-out.: Yes Procedure Operation Date: 09/20/19 07:00 Actual Procedures p Right Anterior Total Hip Arthroplasty(Right) - Sylvester Montgomery DO Surgeon Sylvester Montgomery DO Ophthalmic Tech Sylvester Somers PAC Estimated Blood Loss 300 Findings Consistent with Post-Op Diagnosis Specimens Right femoral head Complications none Disposition Disposition: Recovery Room Indications Tyler is a pleasant 64-year-old male who presented my office with complaints of bilateral hip pain. X-rays and clinical examination were diagnostic for bilateral osteoarthritis of the hips. He underwent a left anterior total hip arthroplasty 6 weeks ago and did well with that. He elected proceed with a right anterior total hip arthroplasty. Description of Procedure Implants used I used a Biomet Taperloc total hip arthroplasty system with a size 11 high offset Taperloc stem, a 52 mm G7 cup with a 25mm screw, an E1 polyethylene liner, a 36 mm ceramic head with a 0 neck. Tyler arrived at the hospital for the above procedure. He was seen in the preoperative holding area and the operative extremity was identified and signed. He was given a spinal anesthetic, a preoperative antibiotic, and TXA. He was then taken back to the operating room and laid on the table in the supine position. He was given basic sedation. The operative leg was secured to a Puristst leg positioner. The hip was then prepped and draped in sterile fashion. A timeout was done and the patient and the operative extremity was properly identified. An anterior approach was used. Dissection was taken down through the fascia and the tensor muscle belly was retracted laterally and the rectus was retracted medially. The circumflex vessels were identified and ligated. The capsule was then incised and tagged for later repair. The femoral neck was then cut and the femoral head was removed. The acetabulum was exposed. Time was spent doing a complete circumferential labral release. Sequential reaming of the acetabulum up to a size 51 reamer was done. Final reamings were done under fluoroscopy to ensure appropriate version. A Biomet 52 mm G7 cup was then impacted into place. A single 25 mm screw was placed. The E1 polyethylene liner was then snapped into place. Surrounding soft tissues were then injected with 100 cc of an orthopedic pain control cocktail. The proximal femur was then exposed. Sequential broaching up to a size 11 broach was done. Off that broach a size 36 head with a 0 neck was trialed. The hip was reduced and fluoroscopic images showed anatomic alignment of the implants in acceptable length. The broach was removed. The final size 11 high offset Taperloc stem was then impacted into place. A ceramic 36 mm head with a 0 neck was then impacted onto the stem and the hip was reduced. Final fluoroscopic images showed anatomic alignment of the hip. The capsule was then closed with #1 Vicryl suture. A dilute betadyne lavage was then done for 3 minutes. The joint was then irrigated with normal saline solution. The fascia was closed with #1 PDS suture. Skin was closed with 2-0 Vicryl, mac, and a Jazzy VAC dressing. He was then transferred to a hospital bed and taken to the post anesthesia care unit in stable condition. He tolerated the procedure well. Sylvester Somers PA-C, was present for the entire procedure. He was critical for patient positioning, prepping, draping, retraction exposure, wound closure and application of sterile dressing. I attest to the content of the Intraoperative Record and any orders documented therein. Any exceptions are noted below.
--- NOTE | 2019-09-20 09:33 | XRay Report ---
XR hip 1V RT w pelvis CLINICAL HISTORY: 64 years-old Male presenting with IN PACU - A/P PELVIS and LATERAL HIP . TECHNIQUE: Single frontal view of the pelvis and crosstable lateral views of the right hip were obtai tawny. COMPARISON: 08/02/2019. FINDINGS: Interval postsurgical changes of total right hip arthroplasty. Expected soft tissue emphysema. [place] ing skin mac and back. No periprosthetic fracture or lucency. No malalignment. Partially visualiz ed while mac from prior bilateral inguinal hernia repairs. Total left hip arthroplasty. This was portion of the pelvis intact. IMPRESSION: Expected postsurgical appearance status post total right hip arthroplasty. ACT 112: Negative or not required by law. Results electronically sent 09/20/2019 9:32 AM to: Sylvester Somers PA-C Electronically signed by: Mac Wong M.D. 09/20/2019 9:32 AM
--- NOTE | 2019-09-20 10:01 | Anesthesiology Progress Note ---
Date of Service September 20, 2019 Anesthesia Post Procedure Vital Signs Vital Signs: Temp Pulse Pulse Resp BP Pulse Ox 09/20/19 09:45 36.7 C 83 20 99/52 L 93 09/20/19 09:35 83 20 99/48 L 93 09/20/19 09:25 85 20 96/53 L 98 09/20/19 09:15 89 17 95/53 L 95 09/20/19 09:06 37 C 94 H 12 91/42 L 95 09/20/19 05:50 37.2 C 75 20 122/80 95 Transfer of Care Handoff Completed per policy Notes Mental Status: alert / awake / arousable and participated in evaluation Patient Amnestic to Procedure: Yes Nausea / Vomiting: adequately controlled Pain: adequately controlled Airway Patency, RR, SpO2: stable & adequate BP & HR: stable & adequate Hydration State: stable & adequate Anesthetic Complications: no major complications apparent
[2019-09-20] MEDS ORDERED: NALOXONE HCL 0.4 MG/1 ML VIAL/CARP IV PRN (10:13)
[2019-09-20] MEDS ORDERED: bisacodyL 10 MG SUPP PR PRN (10:13)
[2019-09-20] MEDS ORDERED: METOCLOPRAMIDE HCL INJ 5 MG/ML 2 ML VIAL IV PRN (10:13)
[2019-09-20] MEDS ORDERED: OXYCODONE HCL IR 5 MG TAB (IMMEDIATE RELEASE) PO PRN (10:13)
[2019-09-20] MEDS ORDERED: ONDANSETRON INJ 2 MG/ML 2 ML VIAL IV PRN (10:13)
[2019-09-20] MEDS ORDERED: HYDROmorphone INJ 0.5 MG/0.5 ML SYR IV PRN (10:13)
[2019-09-20] MEDS ORDERED: MAGNESIUM HYDROXIDE SUSP 30 ML UDC PO PRN (10:13)
[2019-09-20] MEDS: KETOROLAC 30 MG/ML VIAL IV SCH ×3 (12:57→22:08)
[2019-09-20] MEDS: ACETAMINOPHEN 500 MG TAB PO SCH ×2 (14:11→22:08)
[2019-09-20] MEDS: SODIUM CHLORIDE 0.9% 1000ML 1,000 ML IV SCH ×2 (15:11→22:21)
[2019-09-20] MEDS: CEFAZOLIN 2000MG 2,000 MG/15 ML SYR IV SCH (17:35)
[2019-09-20] MEDS: ASPIRIN 81 MG ECTAB PO SCH (20:29)
[2019-09-20] MEDS: DOCUSATE SODIUM 100 MG CAP PO SCH (20:29)
[2019-09-20] MEDS: LISINOPRIL/HCTZ 20/25MG 1 TAB PO SCH (20:29)
[2019-09-20] MEDS ORDERED: PRAVASTATIN SOD 20 MG TAB PO SCH (21:00)
[2019-09-20] MEDS ORDERED: SENNA 8.6 MG TAB PO SCH (21:00)
[2019-09-21] MEDS: CEFAZOLIN 2000MG 2,000 MG/15 ML SYR IV SCH (00:33)
[2019-09-21] MEDS: KETOROLAC 30 MG/ML VIAL IV SCH ×2 (05:13→11:13)
[2019-09-21] MEDS: ACETAMINOPHEN 500 MG TAB PO SCH (05:13)
[2019-09-21 06:55] LABS: Eosinophils # (auto) 0.01 K/uL (0-0.5); Eosinophils % (auto) 0.1 %; Hematocrit (blood only) 33.3 % (42-52); Hemoglobin 11.3 g/dL (14.0-18.0); Immature Granulocytes # (auto) 0.03 K/uL (0.00-0.02); Immature Granulocytes % (auto) 0.2 %; Lymphocytes # (auto) 1.22 K/uL (1.2-3.4); Lymphocytes % (auto) 9.9 %; Mean Corpuscular Hemoglobin 29.9 pg (25-34); Mean Corpuscular Hgb Conc 33.9 g/dL (32-36); Mean Corpuscular Volume 88.1 fL (80-100); Mean Platelet Volume 9.3 fL (7.4-10.4); Monocytes # (auto) 1.16 K/uL (0.11-0.59); Monocytes % (auto) 9.4 %; Neutrophils # (auto) 9.88 K/uL (1.4-6.5); Neutrophils % (auto) 80.4 %; Platelet Count 208 K/uL (130-400); RDW Coefficient of Variation 13.4 % (11.5-14.5); RDW Standard Deviation 43.2 fL (36.4-46.3); Red Blood Count 3.78 M/uL (4.7-6.1)
[2019-09-21 07:27] LABS: Calcium 8.5 mg/dl (8.5-10.1); Creatinine Clr Calc Pharmacy 88.4 ml/min; Est GFR (African American) 80.3; Est GFR (Non-African American) 69.3; Potassium 3.8 mmol/L (3.5-5.1)
[2019-09-21] MEDS ORDERED: dexAMETHasone 4 MG TAB PO SCH (08:00)
--- NOTE | 2019-09-21 08:10 | Orthopedic Progress Note ---
Date of Service September 21, 2019 Assessment & Plan (1) History of right hip replacement: Overall he is doing very well. Is not having much pain in the right hip. He is on aspirin for DVT prophylaxis. He will be seen by physical therapy today for ambulation and range of motion exercises. He can be discharged home later today. He will follow-up with orthopedics in 2 weeks. Present on Admission?: Yes Santana Scott was seen and examined at bedside this morning. Overall is doing very well. Is not having much pain in the right hip. He has already been up and ambulating to the bathroom. He has no complaints. Physical Exam Musculoskeletal: On physical examination of the right hip, the Jazzy VAC dressing is to suction. His leg lengths are equal. He has active dorsiflexion and plantarflexion of his right ankle. Results & Data ([facility]) Vital Signs (Past 12 Hours) Vital Signs Temp Pulse Resp BP Pulse Ox 09/21/19 07:30 36.5 C 72 18 112/65 96 09/21/19 03:21 36.7 C 72 22 108/63 97 09/20/19 23:24 37.2 C 80 22 108/66 95 Laboratory Results H & H 08/20/19 09/21/19 Range/Units 10:50 06:35 Hgb 13.6 L 11.3 L (14.0-18.0) g/dL Hct 40.0 L 33.3 L (42-52) % Coagulation 08/20/19 Range/Units 10:50 INR 1.1 (0.9-1.1) Diagnostic Findings Postoperative x-rays of the right hip show the prosthesis to be in anatomic alignment without any evidence of fracture, dislocation, or loosening. PG Care Time/CCT Total # of Minutes Spent Total Time Spent with Patient: Total time spent is greater than 50% in coordination of care (as documented) at patient's floor/unit and/or counseling patient: Coding Level of Care Code None Diagnoses History of right hip replacement Z96.641
--- NOTE | 2019-09-21 08:11 | Discharge Summary ---
Date of Service September 21, 2019 Admission HPI Per Admitting Provider Tyler is a pleasant 64-year-old male who is been having a chronic history of bilateral hip pain. X-rays and clinical examination were diagnostic for primary osteoarthritis of both hips. He underwent a left anterior total hip arthroplasty 6 weeks ago and did very well with that. He is now ready to proceed with a right anterior total hip arthroplasty. He has lost about 20 pounds since the last procedure. Principal Diagnosis Right total hip arthroplasty Discharge Data Allergies Allergy/AdvReac Type Severity Reaction Status Date / Time Sulfa (Sulfonamide Allergy Severe RASH,FEVER Verified 09/20/19 05:47 Antibiotics) Consultations 09/21/19 08:00 Consult Case Management - Discharge Planning Routine Procedures Performed Operation Date: 09/20/19 07:00 Actual Procedures p Right Anterior Total Hip Arthroplasty(Right) - Sylvester Montgomery DO Ordered Studies 09/20/19 07:00 FL fluoroscopy <1hr Routine FL hip RT 1V Routine Hospital Course (1) History of right hip replacement: On September 20, 2019 Tyler arrived at [facility] and underwent a right anterior total hip arthroplasty without complication. He had a spinal anesthetic. Postoperatively he was started on aspirin for DVT prophylaxis and transferred to the general orthopedic floors. His hospital course was uneventful. On postop day #1 his H&H was stable and his pain was well controlled. He was able to participate well with physical therapy doing ambulation and range of motion exercises. He was then discharged home. He will follow-up with orthopedics in 2 weeks. Total Time Total Time Spent Total Time Spent (In Minutes): 20 Discharge Plan Discharge Items Patient Disposition: Home - Home Health Services Reason For Visit: Right Hip Degenerative Joint Disease Discharge Diagnosis: Right total hip arthroplasty Activity: As commented below Non-emergency contact: Surgeon Call non-emergency contact if: your wound has increased redness and your wound has increased drainage Follow-up/Referrals: Juan Sanabria MD [Primary Care Provider] - Diet: Regular Addtl Attending Provider Instructions: Activity and Therapy Recommendations: * If you are using [facility] then therapy will be provided at your home until they feel you have accomplished all of your goals. * If you are using [facility] then Physical Therapy will be provided until they feel you are ready to start Outpatient Physical Therapy. * If you are not using home therapy then Outpatient Physical Therapy should start about 3-5 days from your day of surgery. Therapy will last about 6-10 weeks * You were shown a series of exercises in the hospital. Do these exercises three times each day including the exercises you were shown in physical therapy. * Get up and walk several times each day.~ For the first four weeks, try not to stand or walk for more than one hour at a time. If you do stand or walk for more than one hour, you will not hurt anything, but your leg will likely swell.~~ * As you feel comfortable, you may change from the walker or crutches to a cane and~then to independent walking. Medications: * Narcotic You will likely be sent home from the hospital with a prescription for the narcotic pain medication that worked best throughout your stay. * Aspirin Most patients will be required to take Aspirin 81mg twice a day for 6 weeks after surgery. This is obtained [id number] and a prescription is not necessary. * Other medications may be prescribed for specific circumstances. If you have any questions, please call the office at . * Resume previous home medications unless otherwise instructed TEDs/Elastic Stockings: The white elastic stockings help limit swelling and prevent blood clots from forming in your legs. The more you wear them, the more they work. Wear them for six weeks. Dressing Care: You will likely have a purple VAC dressing after surgery. This dressing will keep the incision dry and promote early healing. After about 7 days the batteries will wear out and the VAC will lose suction. Simply remove the dressing at that time and throw everything away, including the small suction machine. Then, you may leave the mac open to air or cover them with a dry dressing so they do not rub on your pants. The mac will be removed at your 2 week follow-up appointment. Showering: You may shower immediately with the purple VAC dressing. Let the shower spray hit your opposite side and slowly pat the plastic dry. Do not soak the dressing. After the dressing is removed you may shower normally with the mac exposed. Let soapy water run over the mac and pat them dry. Things To Watch For: * Drainage from the incision site that occurs more than one week after your surgery. * Increased redness at the incision site. * Fever above 102 degrees Fahrenheit. * Unusual chest pain or shortness of breath. * Call [facility] at with any of the above problems Follow-Up Visit: Follow-up with Dr. Montgomery 2-3 weeks after your day of surgery. An appointment was probably scheduled when you signed-up for surgery in the office. If you have any questions call Office Instructions: More detailed instructions as well as Frequently Asked Questions were provided in a folder by our office when you signed-up for surgery. Please review these instructions when you get home. If you have any further questions or concerns, please feel free to call the office at [phone] Pending Studies at Discharge: No Stand-Alone Forms: My [facility] [employer], Smoking Cessation Medications and DC Order Prescriptions: Continued lisinopril-hydrochlorothiazide 20-25 mg tablet 1 tab PO BID Qty: 180 RF: 1 pravastatin 20 mg tablet 20 mg PO QPM Qty: 90 RF: 1 aspirin [Placido Chewable Aspirin] 81 mg tablet,chewable 81 mg PO BID 42 Days Qty: 0 RF: 0 acetaminophen 500 mg Tablet 1,000 mg PO TID PRN (Reason: Pain) RF: 0 ibuprofen-diphenhydramine cit [Advil PM] 200-38 mg Tablet 1 cap PO HS RF: 0 oxycodone 5 mg Tablet 5 mg PO Q4H PRN (Reason: pain) Qty: 40 RF: 0 Discharge Orders: Discharge Order (Routine); Ordered 09/21/19 Ordered By: Sylvester Montgomery Admission Data Admit Date/Time: 09/20/19 09:09 Attending Provider: Sylvester Montgomery Admit Provider: Sylvester Montgomery Primary Care Provider: Juan Sanabria Other Providers: [facility] Coding Level of Care Code D/C Day Management <30 mins Diagnoses History of right hip replacement Z96.641
[2019-09-21] MEDS: ASPIRIN 81 MG ECTAB PO SCH (08:38)
[2019-09-21] MEDS: LISINOPRIL/HCTZ 20/25MG 1 TAB PO SCH (08:38)
[2019-09-21] MEDS: DOCUSATE SODIUM 100 MG CAP PO SCH (08:38)
[2019-09-21] MEDS ORDERED: MULTIVITAMIN TAB PO SCH (09:00)
== END 2019-09-21 12:24 | disposition home health service (06) | DRG 470 ==
LOC: 3E 05:10 → ASU 05:10 → INTOOBSV 09:09 → OBSVTOIN 09:09

== ENCOUNTER 2024-11-01 06:34 | Observation (INO) ==
--- NOTE | 2024-09-27 10:57 | PAT Medication Instructions ---
Medication Instructions Date of Service September 27, 2024 Home Medications Medication Instructions Recorded sildenafil 100 mg tablet 100 mg PO DAILY PRN sexual 09/18/23 activity #18 tabs aspirin 81 mg chewable tablet (Placido Chewable Low Dose Aspirin) 81 mg PO QAM sildenafil 100 mg tablet 100 mg PO DAILY PRN sexual activity amoxicillin 500 mg tablet 2,000 mg PO ONCE PRN Dental Procedure metoprolol succinate 50 mg tablet,extended release 24 hr 50 mg PO QAM pravastatin 40 mg tablet 60 mg PO QPM Continue as directed amoxicillin 500 mg tablet 2,000 mg PO ONCE PRN Dental Procedure ASK your prescriber and surgeon aspirin 81 mg chewable tablet (Casetext Chewable Low Dose Aspirin) 81 mg PO QAM DO NOT take the morning of surgery sildenafil 100 mg tablet 100 mg PO DAILY PRN sexual activity Take morning of surgery With a small sip of water, OTHERWISE NOTHING TO EAT OR DRINK AFTER MIDNIGHT: metoprolol succinate 50 mg tablet,extended release 24 hr 50 mg PO QAM Take evening before surgery pravastatin 40 mg tablet 60 mg PO QPM Other Notes If you have any questions please call us at [phone] or [phone] or [phone] or [phone]
--- NOTE | 2024-10-04 10:35 | Anesthesiology Consultation ---
Date of Service October 04, 2024 Assessment & Plan (1) Encounter for pre-operative examination: Chart Review Chart Review: Acceptable Risk for Surgery (pending routine PCP appt 10/10/24 and cardio ordered ECHO 10/25/24) and Patient seen in Pre Admission Testing - Awaiting routine PCP appt 10/10/24 ([place]) - Awaiting cardiology ordered ECHO 10/25/24 Narrow airway per patient - Patient is NOT an ideal OPJ candidate (currently 23 hour obs) Per PAT appt on 10/04/24, no recent illness/disease exposures, illness related symptoms, or recent illness/disease positive tests. Will leave to surgeon's discretion if preop Covid testing needed Seen by cardiology 09/24/24= seen for follow up. Aortic stenosisstatus post SAVR with bioprosthetic aortic valve. Will undergo echocardiogram as it has been almost 1 year since his last echo. Encouraged him to restart his exercise regimen tolerated by his knee pain. Even modest levels of exercise will be beneficial and once he has recovered from a surgery he then can increase exercise. HypertensionBP well-controlled. CADsingle-vessel TUCKER to LAD. Continue current meds. Hyperlipidemiaon high intensity statin. "Pre-operative cardiovascular examination: Patient has had replacement of his stenotic aortic valve and single-vessel bypass with a TUCKER to LAD. He will undergo echocardiogram. He is considered low risk for ischemic complication of noncardiac surgery. Per AHA/ACC guidelines he should proceed with surgery as planned." Teaching & Discussion Pre-Anesthesia Teaching/Discussion Notes: Instructed NPO after midnight before surgery,except medications with 15 cc of water. Medication instructions provided according to the PAT guidelines. History Surgery Operation Date: 11/01/24 12:00 Proposed Procedures p Left Total Knee Arthroplasty - Sylvester Montgomery DO Height/Weight Height: 6 ft Weight: 107.2 kg Allergies Allergy/AdvReac Type Severity Reaction Status Date / Time Sulfa (Sulfonamide Allergy Intermediate Rash, Fever Verified 09/25/24 11:42 Antibiotics) Medications Home Medications Medication Instructions Recorded Confirmed Last Taken aspirin 81 mg chewable tablet 81 mg PO QAM 03/05/20 09/25/24 11/13/23 09:00 (Placido Chewable Low Dose Aspirin) sildenafil 100 mg tablet 100 mg PO DAILY PRN sexual 09/18/23 09/25/24 11/13/23 09:00 activity #18 tabs amoxicillin 500 mg tablet 2,000 mg PO ONCE PRN Dental 09/25/24 09/25/24 Unknown Procedure metoprolol succinate 50 mg 50 mg PO QAM 09/25/24 09/25/24 Unknown tablet,extended release 24 hr pravastatin 40 mg tablet 60 mg PO QPM 09/25/24 09/25/24 Unknown Past Medical History Medical History BPH (benign prostatic hyperplasia) pts denies PSA WNL per patient Carotid stenosis <50% stenosis to bilateral ICAs per 2022 carotid doppler Coronary artery disease - s/p one vessel CABG (TUCKER to LAD) (12/2023) - [facility] Card[facility] History of anesthesia reaction - As per patients "procedure always have to be in a hospital never a surgery center due to his breathing" - Difficult intubation with 2013 shoulder surgery (no issues with LMA placement per previous records)- narrow airway per patient History of aortic stenosis [facility] History of COVID-19 SEP 01 2020 + Test - resolved Hyperlipidemia Hypertension Impaired fasting glucose Improved with weight loss Hgb A1C 5.2 om 10/04/24 Obesity Obstructive sleep apnea CPAP Exercise / Class Metabolic Activity II 4-5 Yardwork/Stairs/Walk up hill (one flight of stairs - no chest pain or SOB ) Past Family History Family History Father Alzheimer disease Prostate cancer Mother Dyslipidemia Hypertension Grandmother Family history of diabetes mellitus Sister Healthy adult Other Family history of prostate cancer in father Past Surgical History Surgical History History of carpal tunnel release Bilateral History of colonoscopy + polypectomy/BENIGN History of difficult intubation Patient states he was told by anesthesia "had difficulty" with intubation with right shoulder surgery ([facility]/Dr. Mathew). Received anesthesia records from 09/10/12 right shoulder arthroscopy that did not indicate any difficulties with LMA placement. Right interscalene block + #5LMA. Patient reports "narrow passage" with intubation History of left hip replacement Left anterior VANIA: 08/02/19: SAB x1 at L3/L4 at [facility] History of right hip replacement (~09/2019) Hx of cardiac catheterization (11/2023) no stents - [facility] Cardiology S/P AVR (aortic valve replacement) (12/21/23) with TUCKER to LAD - [facility] Cardiology S/P CABG x 1 (12/21/23) Status post TUCKER to LAD at the [facility] at the same time as the aortic valve replacement. S/P tonsillectomy Status post arthroscopy of right shoulder Status post hernia repair Left inguinal hernia repair, umbilical hernia repair Past Anesthesia History No Hx of Anesthesia Complications (with exception to difficult intubation in 2012) and No Family Hx of Anesthesia Complications History of PONV No Hx of PONV and No Hx of Motion Sickness Social History Smoking Status: Never smoker Do You Dip or Chew Tobacco: No Hx Alcohol Use: Yes Alcohol type: beer alcohol intake frequency: a few times a week Hx Substance Use: No substance use type: does not use Review of Systems Patient denies chest pain, shortness of breath, dyspnea on exertion, reflux, cough, wheezing, palpitations. No hx of seizures, stroke, [place]. No hx of blood clots or blood transfusions Physical Exam Vital Signs VITALS BP 145/84 P 55 TEMP 97.8 SP02 95% RESP 16 Constitutional no acute distress ENMT Mouth: + small oral opening; no TMJ clicking Thyromental Distance: > or= 3.5 Finger Breadths (3.5) Mallampati Class: IV Missing side teeth Neck + limited neck extension (significant ) and + facial hair (advised to trim/shave ) Respiratory normal respiratory effort; no respiratory distress Auscultation: lungs clear to auscultation bilaterally; no wheezes Cardiovascular Rate/Rhythm: regular rate and regular rhythm Heart Sounds: no murmur Vessels: no carotid bruit Musculoskeletal Spine: no pain with cervical ROM Extremities: extremities normal to inspection Psychiatric Orientation: alert Lab Results Anesthesia Preop Results Results Anesthesia Widget: WBC 4.99 K/ul (4.8-10.8) 10/04/24 Hgb 15.8 g/dl (14.0-18.0) 10/04/24 Hct 46.5 % (42.0-52.0) 10/04/24 Plt 172 K/uL (130-400) 10/04/24 Na 137 mmol/L (136-145) 10/04/24 K 4.2 mmol/L (3.5-5.1) 10/04/24 Cl 105 mmol/L (98-107) 10/04/24 CO2 27 mmol/L (21-32) 10/04/24 BUN 15 mg/dl (6-23) 10/04/24 Creat 0.80 mg/dl (0.6-1.4) 10/04/24 Glucose Level 103 mg/dl (70-99(Fasting)) H 10/04/24 PT 11.0 Seconds (9.0-12.0) 10/04/24 PTT 25 Seconds (21-31) 10/04/24 INR 1.0 (0.9-1.1) 10/04/24 HA1c 5.2 % (4.5-5.6) 10/04/24 Blood Type A Positive 10/04/24 Antibody Screen NEGATIVE 10/04/24 Testing Electrocardiogram Date: 10/04/24 Findings: + SB @ (54bpm) Left axis deviation Minimal voltage criteria for LVH, may be normal variant T wave abnormality, consider lateral ischemia When compared to EKG from Jul 03, 2019- no significant change was found per cardio Chest X-Ray Date: 10/04/24 Findings: + NAD FINDINGS: Stable cardiac valve repair. Stable mild cardiomegaly without pulmonary vascular congestion. No effusion or consolidation Cardiac Catheterization Date: 11/15/23 Coronary angiography findings: [id number] bifurcating into LAD and circumflex. Mild less than 20% stenosis FMY-socmi-pkprddw and transapical. Proximal segment is normal. Gives a first diagonal with mild luminal irregularities. Mid segment has up to 30% stenosis. This gives the small to medium caliber second diagonal which has no disease. Distally there is a focal calcified stenosis of 70% in the LAD and then there is a third diagonal which is small with mild disease EOy-abgka-xdobzxi and nondominant. There is ostial to proximal 20 to 30% stenosis. Vessel travels in the AV groove giving a small OM1, large branching OM 2, and atrial branch, and terminating with the posterolateral branch. There is no more than mild scattered plaques of less than 20% in the circumflex and its branches. JCO-yjsby-kxvswog and dominant. Proximally there is luminal irregularities, the mid segment has no significant disease, distally there is mild less than 30% stenosis. The vessel then bifurcates into a large PDA and a large posterolateral branch which has less than 30% stenosis. IFR of LAD lesion-0.84, 0.82, 0.82. Therefore, this is considered hemodynamically significant. Summary: 1. Mild pulmonary hypertension, mildly elevated wedge pressure. Cardiac output/cardiac index and pulmonary vascular resistance is. 2. Mild coronary artery disease with the exception of the LAD. This lesion in the LAD is determined to be hemodynamically significant by IFR analysis. 3. Patient will be on guideline directed medical therapy for secondary prevention of coronary artery disease to include; low-dose aspirin, high intensity statin therapy, beta-campbell, plus or minus JYOTSNA inhibitor/ARB. 4. We will refer the patient to tertiary center for evaluation of aortic valve replacement and LAD revascularization. (Patient had subsequent 1 vessel CABG with AVR 12/2023) Other Testing Carotid Duplex 09/28/22= <50% stenosis of right and left ICAs. Antegrade flow to bilateral vertebral arteries. Compared to prior exam on 06/04/2019- there is no significant change
--- NOTE | 2024-10-30 07:51 | History & Physical Report ---
Date of Service October 30, 2024 Assessment & Plan (1) Osteoarthritis of left knee: We will proceed with a left total knee arthroplasty. Postoperatively, he will be started on aspirin for DVT prophylaxis and kept overnight in the hospital for postop medical management. He plans to do outpatient physical therapy after discharge. History of Present Illness Chief Complaint: Osteoarthritis of the left knee. Primary Care Provider: Ron Sanabria MD Tyler is a pleasant 69-year-old male who is well known to me. I have done bilateral hip replacements on him. He has done well with those. Unfortunately, he is dealing with a lot of left knee pain. All of his pain is located medially. He has had injections before and has done therapy. Unfortunately, he is still having pain. X-rays and clinical exam have been diagnostic for advanced osteoarthritis of the left knee. After failed conservative treatment, he has elected proceed with a left total knee arthroplasty. Allergies Allergy/AdvReac Type Severity Reaction Status Date / Time Sulfa (Sulfonamide Allergy Intermediate Rash, Fever Verified 10/10/24 09:57 Antibiotics) Home Medications Medication Instructions Recorded Confirmed Type aspirin 81 mg chewable tablet 81 mg PO QAM 03/05/20 10/10/24 History (Placido Chewable Low Dose Aspirin) sildenafil 100 mg tablet 100 mg PO DAILY PRN sexual 09/18/23 10/10/24 Rx activity #18 tabs amoxicillin 500 mg tablet 2,000 mg PO ONCE PRN Dental 09/25/24 10/10/24 History Procedure metoprolol succinate 50 mg 50 mg PO QAM #30 tabs 10/07/24 10/10/24 Rx tablet,extended release 24 hr rosuvastatin 40 mg tablet 40 mg PO DAILY #90 tabs 10/10/24 10/10/24 Rx Past Med/Surg History Problem List Obstructive sleep apnea CPAP S/P AVR (aortic valve replacement) Status post aortic valve replacement with 25 mm Inspiris valve at the [facility] 12/21/2023 Coronary artery disease Bicuspid aortic valve History of colon polyps Aortic stenosis s/p AVR 12/2023 Arthritis BPH (benign prostatic hyperplasia) DENIES Carotid stenosis PT DENIES Impaired fasting glucose Improved with weight loss Hgb A1C 5.2 om 10/04/24 Low back pain Male erectile disorder of organic origin Hyperlipidemia Hypertension Medical History Hypertension Hyperlipidemia Coronary artery disease - s/p one vessel CABG (TUCKER to LAD) (12/2023) - [facility] Cardiology Carotid stenosis <50% stenosis to bilateral ICAs per 2022 carotid doppler BPH (benign prostatic hyperplasia) pts denies PSA WNL per patient History of aortic stenosis [facility] Cardiology - s/p aortic valve replace 12/2023 [facility] History of COVID-SEP 01 2020 + Test - resolved History of anesthesia reaction - As per patients "procedure always have to be in a hospital never a surgery center due to his breathing" - Difficult intubation with 2013 shoulder surgery (no issues with LMA placement per previous records)- narrow airway per patient Obesity Tubular adenoma of colon Surgical History Hx of cardiac catheterization (11/2023) no stents - [facility] - [facility] Cardiology S/P AVR (aortic valve replacement) (12/21/23) with TUCKER to LAD - [facility] - [facility] Cardiology S/P CABG x 1 (12/21/23) Status post TCUKER to LAD at the [facility] at the same time as the aortic valve replacement. History of right hip replacement (~09/2019) History of left hip replacement Left anterior VANIA: 08/02/19: SAB x1 at L3/L4 at [facility] History of difficult intubation Patient states he was told by anesthesia "had difficulty" with intubation with right shoulder surgery ([facility]/Dr. Mathew). Received anesthesia records from 09/10/12 right shoulder arthroscopy that did not indicate any difficulties with LMA placement. Right interscalene block + #5LMA. Patient reports "narrow passage" with intubation History of carpal tunnel release Bilateral History of colonoscopy + polypectomy/BENIGN S/P tonsillectomy Status post arthroscopy of right shoulder Status post hernia repair Left inguinal hernia repair, umbilical hernia repair Family History Father Alzheimer disease Prostate cancer Hypertension Mother Dyslipidemia Grandmother Family history of diabetes mellitus Sister Hypertension Other Family history of prostate cancer in father Social History Smoking Status: Never smoker Second Hand Exposure: No; Do You Dip or Chew Tobacco: No; Hx Alcohol Use: Yes Alcohol type: beer Alcohol Intake Frequency: 4 or More x per/Week Alcohol Intake Frequency Comment: about one beer per week Hx Substance Use: No Preferred Language: Khmer Communication Ability: Effective Visual Impairment: No Limitations Roll Dough Divider Required: No Beliefs That Will Affect Care: None marital status: Current Living Situation: Spouse current occupational status: employed 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 Physical Exam On physical exam of the left knee, he has a slight varus deformity. He has tenderness palpation of the distal medial femoral condyle and over the medial joint line.. Constitutional WD/WN, vitals as above Eyes PERRL, conjunctivae normal, anicteric sclerae ENMT external ear and nose normal, oropharynx normal Neck trachea midline, no thyromegaly Respiratory normal respiratory effort Cardiovascular RRR, no murmur, no edema Gastrointestinal (Abdomen) normal bowel sounds, soft, nontender, no hepatosplenomegaly Psychiatric A+Ox3, euthymic affect Results & Data Results & Data Laboratory Results . Diagnostic Findings X-rays of the left knee show advanced medial compartmental arthritis with joint space narrowing, osteophyte formation, and [id number] articulation.. PG Care Time/CCT Total # of Minutes Spent Total Time Spent with Patient: Total time spent is greater than 50% in coordination of care (as documented) at patient's floor/unit and/or counseling patient: Coding Level of Care Code None Diagnoses Osteoarthritis of left knee M17.12
[~2024-11-01 06:34] MED LIST changes: -IBUP-103 PO; -LSN/2025 PO; +MIDAZOLAM HCL 1 MG/ML 2ML VIAL ONE; +ONDANSETRON INJ 2 MG/ML 2 ML VIAL ONE; -PRAV20TA PO; +PROPOFOL IV EMULSION 10 MG/ML 20 ML VIAL IV ONE; +ROPIVACAINE 0.5% 5 MG/ML 30 ML VIAL ONE
--- NOTE | 2024-11-01 06:47 | History & Physical Bridge Note ---
Date of Service November 01, 2024 History & Physical Bridge Note I have examined the patient, reviewed the History & Physical and in the interval since the performance of the History & Physical I have noted the following changes of clinical significance: no changes noted
[2024-11-01] MEDS ORDERED: MIDAZOLAM HCL 1 MG/ML 2ML VIAL ONE ×3 (06:55→08:47)
[2024-11-01] MEDS ORDERED: fentaNYL citrate PF 100 MCG/2 ML VIAL ONE (06:56)
[2024-11-01] MEDS ORDERED: ONDANSETRON INJ 2 MG/ML 2 ML VIAL ONE (06:58)
[2024-11-01] MEDS ORDERED: LIDOCAINE 2% 2 ML VIAL/AMP(20MG/ML) INFIL ONE (06:58)
[2024-11-01] MEDS ORDERED: PROPOFOL IV EMULSION 10 MG/ML 20 ML VIAL IV ONE ×2 (06:58)
[2024-11-01] MEDS ORDERED: GLYCOPYRROLATE 0.2 MG/ML VIAL ONE (06:58)
[2024-11-01] MEDS ORDERED: KETAMINE HCL 10MG/ML SYR ONE (07:00)
[2024-11-01] MEDS: LR 500ML BOLUS, THEN 15ML/HR IV SCH (07:05)
[2024-11-01] MEDS: LR 60ML/HR IV SCH (07:06)
[2024-11-01] MEDS: ACETAMINOPHEN 500 MG TAB PO SCH ×2 (07:06→13:44)
[2024-11-01] MEDS: GABAPENTIN 300 MG CAP PO SCH (07:06)
[2024-11-01] MEDS: dexAMETHasone**PF** 10 MG/ML VIAL IV SCH (07:07)
[2024-11-01] MEDS: FAMOTIDINE 20 MG TAB PO SCH (07:07)
[2024-11-01] MEDS ORDERED: HYDROmorphone INJ 1 MG/ML SYRINGE IV PRN (07:33)
[2024-11-01] MEDS ORDERED: ATROPINE SULFATE 0.1 MG/ML 10ML SYR IV PRN (07:33)
[2024-11-01] MEDS ORDERED: KETOROLAC TROMETHAMINE 15 MG/ML VIAL IV PRN (07:33)
[2024-11-01] MEDS ORDERED: ePHEDrine sulfate 50 MG/ML AMP IV PRN (07:33)
[2024-11-01] MEDS ORDERED: ONDANSETRON INJ 2 MG/ML 2 ML VIAL IV PRN ×2 (07:33→10:57)
[2024-11-01] MEDS: TRANEXAMIC ACID 1,000 MG **IV Pre-op IV SCH (07:41)
[2024-11-01] MEDS: ceFAZolin 2000MG 2,000 MG/15 ML SYR IV SCH ×2 (07:58→15:25)
[2024-11-01] MEDS: ORTHO JOINT ANESTHETIC ONE (08:29)
[2024-11-01] MEDS: ROPIV 0.5% 246mg, Ketorolac 30mg, EPINEPHrine 0.5mg in NSS INFIL SCH (08:29)
[2024-11-01] MEDS ORDERED: PHENYLEPHRINE 100MCG/ML 5ML SYR ONE (08:50)
[2024-11-01] MEDS: TRANEXAMIC ACID 1,000 MG **IV Intra-op IV SCH (09:04)
--- NOTE | 2024-11-01 09:08 | Operative Report ---
PG Post Operative Report Pre & Post Diagnosis Operation Date: 11/01/24 08:00 Pre-Op Diagnosis: Osteoarthritis of left knee Post-Op Diagnosis: Osteoarthritis of left knee I identified the patient and participated in the time-out.: Yes Procedure Operation Date: 11/01/24 08:00 Actual Procedures p Left Total Knee Arthroplasty(Left) - Sylvester Montgomery DO Surgeon Sylvester Montgomery DO Computer Bookkeeper Silverio Edwards PA-C Estimated Blood Loss 50 Findings Consistent with Post-Op Diagnosis Specimens Left femoral and tibial bone Description of Procedure Implants used: I used a Chacho Persona total knee arthroplasty system with a size 11 standard femur, F tibia, 31 oval patella, and a size 10 medial congruent polyethylene bearing. All components were cemented in place with Biomet cement. Tyler burt [facility] for the above procedure. He was seen in the preoperative holding area and the operative extremity was identified and signed. He was given a preoperative antibiotic, TXA, a spinal anesthetic and an adductor nerve block. He was taken back to the operating room and laid on the table in supine position. He was given basic sedation. The operative knee was then prepped and draped in sterile fashion. A timeout was done, and the patient and the operative extremity was properly identified. A midline incision was made directly over the patella. Dissection was taken down to the extensor mechanism. A medial parapatellar arthrotomy was used. The medial retinaculum was released and the fat pad was mostly excised. The knee was flexed and the ACL, PCL, and meniscus were removed. A drill was sent down the center of the femoral canal followed by an intramedullary liyah. Off that liyah a distal femoral cutting block was placed. 9 mm was resected off the distal femur at 5 of valgus. A posterior referencing AP sizing guide was then placed on the distal femur. The femur measured to be a size 11. 2 drill holes were placed in 3 of external rotation. A 4-in-1 cutting block was then impacted into place. Anterior, posterior, and chamfer cuts were then made. The proximal tibia was then exposed. An external tibial alignment guide was placed. A tibial cut guide was then anchored in place and the proximal tibia was then resected. The posterior aspect of the knee was then opened up and any additional meniscus fragments and osteophytes were removed. The tibia measured to be a size F. The tibial plate was then placed in the appropriate rotation and the tibia was drilled and punched. Trial components were then placed. I used a size 10 medial congruent polyethylene insert. The knee was brought through a full range of motion and felt to be stable. The peg holes for the femoral component were then drilled. The patella was then everted and 9 mm was resected off the posterior aspect of the patella. The patella measured to be a size 31 oval. 3 peg holes were then drilled. A trial patella was placed. The knee was once again brought through a full range of motion and felt to be stable. Trial components were then removed. The surrounding soft tissues were injected with 100 cc of an orthopedic pain control cocktail. All components were then cemented into place with Biomet cement. The final polyethylene insert was then snapped into place. Once cement was dry the tourniquet was deflated. Hemostasis was obtained. A dilute betadyne lavage was then done for 3 minutes. The joint was then irrigated with normal saline solution. The medial parapatellar arthrotomy was then closed with #1 Vicryl suture. The skin was closed with 2-0 Vicryl, 3-0V lock suture, and mac. A soft compressive dressing was placed. He was then transferred to a hospital bed and taken to the postanesthesia care unit in stable condition. He tolerated the procedure well. Silverio Edwards PA-C, was present for the entire procedure. He was critical for patient positioning, prepping, draping, retraction exposure, wound closure and application of sterile dressing. I attest to the content of the Intraoperative Record and any orders documented therein. Any exceptions are noted below.
--- NOTE | 2024-11-01 09:53 | XRay Report ---
XR knee LT 1 or 2V routine CLINICAL HISTORY: Surgical Post Op COMPARISON: None FINDINGS: Left knee prosthesis shows no hardware complication. There is expected soft tissue gas. Sk in mac are present. IMPRESSION: Unremarkable postoperative exam. ACT 112: Negative or not required by law. Electronically signed by: Wilman Garcia M.D. 11/01/2024 9:52 AM
[2024-11-01] MEDS ORDERED: NALOXONE HCL 0.4 MG/1 ML VIAL/CARP IV PRN (10:57)
[2024-11-01] MEDS ORDERED: MAGNESIUM HYDROXIDE SUSP 30 ML UDC PO PRN (10:57)
[2024-11-01] MEDS ORDERED: METOCLOPRAMIDE HCL INJ 5 MG/ML 2 ML VIAL IV PRN (10:57)
[2024-11-01] MEDS ORDERED: bisacodyL 10 MG SUPP PR PRN (10:57)
[2024-11-01] MEDS ORDERED: HYDROmorphone INJ 0.5 MG/0.5 ML SYR IV PRN (10:57)
--- NOTE | 2024-11-01 11:19 | Anesthesiology Progress Note ---
Date of Service November 01, 2024 Anesthesia Post Procedure Vital Signs Vital Signs: Temp Pulse Pulse Resp BP Pulse Ox O2 Del Method 11/01/24 11:00 58 L 18 125/61 95 Nasal Cannula 11/01/24 10:45 71 20 124/65 94 Nasal Cannula 11/01/24 10:30 60 13 120/72 95 Nasal Cannula 11/01/24 10:15 61 12 113/70 95 Nasal Cannula 11/01/24 10:05 36.4 C L 60 16 130/81 94 Nasal Cannula 11/01/24 09:55 59 L 12 115/61 95 Oxymask 11/01/24 09:45 69 12 115/70 97 Oxymask 11/01/24 09:35 59 L 16 118/65 95 Oxymask 11/01/24 09:28 36.3 C L 70 18 112/64 95 Oxymask 11/01/24 06:53 36.6 C 63 18 151/84 H 94 Room Air O2 Flow Rate 11/01/24 11:00 2 11/01/24 10:45 2 11/01/24 10:30 2 11/01/24 10:15 2 11/01/24 10:05 2 11/01/24 09:55 4 11/01/24 09:45 4 11/01/24 09:35 4 11/01/24 09:28 4 11/01/24 06:53 Transfer of Care Handoff Completed per policy Notes Mental Status: alert / awake / arousable Patient Amnestic to Procedure: Yes Nausea / Vomiting: adequately controlled Pain: adequately controlled Airway Patency, RR, SpO2: stable & adequate BP & HR: stable & adequate Hydration State: stable & adequate Neuraxial Anesthesia: was administered and sensory block is resolving Anesthetic Complications: no major complications apparent
[2024-11-01] MEDS: KETOROLAC TROMETHAMINE 15 MG/ML VIAL IV SCH (13:14)
[2024-11-01] MEDS ORDERED: ceFAZolin 1000MG 1,000 MG/7.5 ML SYR IV SCH (15:30)
[2024-11-01] MEDS: ASPIRIN 81 MG ECTAB PO SCH (20:29)
[2024-11-01] MEDS: DOCUSATE SODIUM 100 MG CAP PO SCH (20:29)
[2024-11-01] MEDS: SENNA 8.6 MG TAB PO SCH (20:29)
[2024-11-01] MEDS: oxyCODONE HCL IR 5 MG TAB (IMMEDIATE RELEASE) PO PRN (20:29)
[2024-11-02 03:00] VITALS: RESP 16
[2024-11-02] MEDS ORDERED: VANCOMYCIN HCL 1,000 MG/270 ML BAG IV SCH (06:00)
--- NOTE | 2024-11-02 06:56 | Orthopedic Progress Note ---
Date of Service November 02, 2024 Assessment & Plan (1) Status post left knee replacement: Overall he is doing very well. He is not having much pain in the left knee. He will be seen by physical therapy today for ambulation and range of motion exercises. He is on aspirin for DVT prophylaxis. The nursing staff can change his dressing after physical therapy. He will be discharged to home later today. He will follow-up with orthopedics in 2 weeks. Santana Scott was seen and examined at bedside this morning. Overall is doing very well. He is not having much pain in the left knee. He has been up and ambulating to the bathroom. He has no complaints.. Review of Systems All systems reviewed & are unremarkable except as noted in HPI & below. Physical Exam On physical exam of the left knee, the dressing is clean and dry. His leg is out full extension. He has active dorsiflexion plantarflexion of his left ankle.. Results & Data Results & Data Laboratory Results . Diagnostic Findings Postoperative x-rays of the left knee show the prosthesis to be in anatomic alignment without any evidence of fracture complication, or loosening.. PG Care Time/CCT Total # of Minutes Spent Total Time Spent with Patient: Total time spent is greater than 50% in coordination of care (as documented) at patient's floor/unit and/or counseling patient: Coding Level of Care Code 61259 Post Operative Follow-Up Diagnoses Status post left knee replacement Z96.652
--- NOTE | 2024-11-02 06:57 | Discharge Summary ---
Date of Service November 02, 2024 Admission HPI (Per Admitting) Tyler is a pleasant 69-year-old male who is well known to me. I have done bilateral hip replacements on him. He has done well with those. Unfortunately, he is dealing with a lot of left knee pain. All of his pain is located medially. He has had injections before and has done therapy. Unfortunately, he is still having pain. X-rays and clinical exam have been diagnostic for advanced osteoarthritis of the left knee. After failed conservative treatment, he has elected proceed with a left total knee arthroplasty. Admission Exam (Per Admitting) On physical exam of the left knee, he has a slight varus deformity. He has tenderness palpation of the distal medial femoral condyle and over the medial joint line.. Principal Diagnosis Same as "Discharge Diagnosis" noted below under Discharge Instructions. Discharge Exam On physical exam of the left knee, the dressing is clean and dry. His leg is out full extension. He has active dorsiflexion plantarflexion of his left ankle.. Discharge Data Procedures Performed Operation Date: 11/01/24 08:00 Actual Procedures p Left Total Knee Arthroplasty(Left) - Sylvester Montgomery DO Ordered Studies 11/01/24 05:00 US - OR guided needle placemen Routine Hospital Course (1) Status post left knee replacement: On November 01, 2024 Tyler arrived at [facility] and underwent a left knee replacement without complication. He had a spinal anesthetic. Postoperatively, he was started on aspirin for DVT prophylaxis and transferred to the general orthopedic floors. His hospital course is uneventful. On postop day #1, his vital signs were stable and his pain was well-controlled. He was able to participate well with physical therapy doing ambulation and range of motion exercises. He was then discharged to home. He will follow-up with orthopedics in 2 weeks. PG Care Time/CCT Total # of Minutes Spent Total Time Spent with Patient: Total time spent is greater than 50% in coordination of care (as documented) at patient's floor/unit and/or counseling patient: Discharge Plan Discharge Items Patient Disposition: Home - Self-Care Reason For Visit: Arthritis Knee Left Discharge Diagnosis: Left knee replacement Activity: Per Instructions section Non-emergency contact: Surgeon Call non-emergency contact if: your wound has increased redness and your wound has increased drainage Follow-up/Referrals: Ron Sanabria MD [Primary Care Provider] - Diet: Regular Ambulatory Orders: Hemoglobin A1C (Glycosylated) (Routine) Timeframe: [id number] Location: Determined by Patient Ordered By: Sharon Foster Attending Provider Instructions: Activity and Therapy Recommendations: * If you are using [facility] then therapy will be provided at your home until they feel you have accomplished all of your goals. * If you are using [facility] then Physical Therapy will be provided until they feel you are ready to start Outpatient Physical Therapy. * If you are not using home therapy then Outpatient Physical Therapy should start about 3-5 days from your day of surgery. Therapy will last about 6-10 weeks * It is important not to put a pillow under your knee when you are relaxing or sleeping. It is just as important to make sure you are getting your knee perfectly straight as it is to regain your knee bend. * You were shown a series of exercises in the hospital. Do these exercises three times each day including the exercises you were shown in physical therapy. * Get up and walk several times each day. For the first four weeks, try not to stand or walk for more than one hour at a time. If you do stand or walk for more than one hour, you will not hurt anything, but your leg will likely swell. * As you feel comfortable, you may change from the walker or crutches to a cane and then to independent walking. Medications: * Narcotic You will likely be sent home from the hospital with a prescription for the narcotic pain medication that worked best throughout your stay. * Cefadroxil -take the antibiotic twice a day for 10 days to help prevent inf ection. * Aspirin Most patients will be required to take Aspirin 81mg twice a day for 6 weeks after surgery. This is obtained [id number] and a prescription is not necessary. * Other medications may be prescribed for specific circumstances. If you have any questions, please call the office at . * Resume previous home medications unless otherwise instructed TEDs/Elastic Stockings: The white elastic stockings help limit swelling and prevent blood clots from forming in your legs.~ The more you wear them, the more they work. Wear them for 2 weeks. Dressing Care: The dressing can be changed after physical therapy on postop day #1. Daily dry dressing changes for a few days, especially if the incision is still draining some. If the incision is not draining then you may leave the mac open to air. If there is a little bit of drainage or if the mac are getting stuck on your clothing then cover the incision with a dry dressing. The mac will be removed at your 2 week follow-up appointment. Showering: You may shower 5 days from the day of surgery as long as the incision is no longer draining. You may shower with the mac exposed. Let soapy water run over the mac and pat them dry. Do not scrub or soak the incision. Diet: You may resume your previous diet. Things To Watch For: * Drainage from the incision site that occurs more than one week after your surg kendrick. * Increased redness at the incision site. * Fever above 102 degrees Fahrenheit. * Unusual chest pain or shortness of breath. * Call [facility] at with any of the above problems Follow-Up Visit: Follow-up with Dr. Montgomery's office 2-3 weeks after your day of surgery. We will remove your mac and answer any questions. If you have any additional questions or concerns, Dr Montgomery is usually in the office at the same time and will be available An appointment was probably scheduled when you signed-up for surgery in the office. If you have any questions call Office Instructions: More detailed instructions as well as Frequently Asked Questions were provided in a folder by our office when you signed-up for surgery. Please review these instructions when you get home. If you have any further questions or concerns, please feel free to call the office at [phone] Pending Studies at Discharge: No Stand-Alone Forms: [facility], Smoking Cessation Medications and DC Order Prescriptions: New cefadroxil 500 mg capsule 500 mg PO BID 10 Days Qty: 20 0RF oxycodone 5 mg tablet 5 mg PO Q6H PRN (Reason: pain) Qty: 30 0RF Continued metoprolol succinate 50 mg tablet extended release 24 hr 50 mg PO QAM Qty: 30 5RF rosuvastatin 40 mg tablet 40 mg PO DAILY Qty: 90 3RF amoxicillin 500 mg tablet 2,000 mg PO ONCE PRN (Reason: Dental Procedure) Rx Instructions: take on day of dental procedure sildenafil [Viagra] 100 mg tablet 100 mg PO DAILY PRN (Reason: sexual activity) Changed aspirin [Placido Chewable Aspirin] 81 mg tablet,chewable 81 mg PO BID 42 Days Qty: 0 0RF Discharge Orders: Discharge Order (Routine); Ordered 11/02/24 Ordered By: Sylvester Montgomery Admission Data Admit Date/Time: 11/01/24 09:29 Attending Provider: Sylvester Montgomery Admit Provider: Sylvester Montgomery Primary Care Provider: Ron Sanabria
[2024-11-02 07:14] VITALS: BP 176/83; TEMP 97.5; O2SAT 95
[2024-11-02] MEDS: MULTIVITAMIN TAB PO SCH (08:07)
[2024-11-02] MEDS: METOPROLOL SUCC 50MG EXT REL TAB PO SCH (08:07)
[2024-11-02] MEDS: dexAMETHasone 4 MG TAB PO SCH (08:07)
[2024-11-02] MEDS: ROSUVASTATIN CALCIUM 20 MG TAB PO SCH (08:07)
[2024-11-02 08:54] VITALS: PULSE 64
== END 2024-11-02 11:21 | disposition home or self-care (01) ==
LOC: ASU 06:34 → PACUINP 06:34 → 3N 12:42